=== PATIENT | female | born 1970 | race Caucasian/White ===

== ENCOUNTER 2021-04-26 13:45 | Emergency (ER) | payer OTHER, SELFPAY ==
[2021-04-26 14:00] VITALS: BP 136/72; PULSE 94; RESP 17; TEMP 36.3; O2SAT 99
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
== END 2021-04-26 14:16 | disposition home or self-care (01) ==
PROVIDERS: Emergency Provider Emergency Medicine; PCP Family Medicine
DX: S29.012A Strain of muscle and tendon of back wall of thorax, initial encounter (principal); Y04.8XXA Assault by other bodily force, initial encounter; E78.00 Pure hypercholesterolemia, unspecified; F41.9 Anxiety disorder, unspecified; F32.9 Major depressive disorder, single episode, unspecified
CPT/HCPCS: 99213; G0463

== ENCOUNTER 2021-05-08 10:46 | Emergency (ER) | payer OTHER, SELFPAY ==
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
[2021-05-08 10:57] VITALS: BP 124/75; PULSE 81; RESP 18; TEMP 36.7; O2SAT 97
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
== END 2021-05-08 12:04 | disposition home or self-care (01) ==
PROVIDERS: Emergency Provider Nurse Practitioner; PCP Family Medicine
DX: M25.521 Pain in right elbow (principal); F32.9 Major depressive disorder, single episode, unspecified; K21.9 Gastro-esophageal reflux disease without esophagitis; E78.00 Pure hypercholesterolemia, unspecified; F17.210 Nicotine dependence, cigarettes, uncomplicated
CPT/HCPCS: 73080; 99213; G0463

== ENCOUNTER 2024-12-09 18:05 | Emergency (ER) | payer OTHER, SELFPAY ==
--- NOTE | ~2024-12-09 | XR_ITS ---
XR hand RT min 3V Ordering provider: Maksim Lucas MD History: . PAIN TO RIGHT WRIST AND RIGHT HAND . Comparison: None. FINDINGS: BONES: Comminuted fracture in the distal right radius. JOINT SPACES: Normal. SOFT TISSUES: Normal. IMPRESSION: Near to the fracture in the distal metaphysis of the right radius. Reviewed, dictated and finalized at location A.
--- NOTE | ~2024-12-09 | XR_ITS ---
XR wrist RT min 3V Ordering provider: Raymond Forbes MD History: . pain . Comparison: None. FINDINGS: BONES: Comminuted fracture in the distal right radius metaphysis with no significant displacement. JOINT SPACES: Normal. SOFT TISSUES: Normal. IMPRESSION: Comminuted fracture in the distal right radius. Reviewed, dictated and finalized at location A.
--- NOTE | 2024-12-09 18:08 | PC.NURSE ---
Ice pack applied in Triage
--- OUTSIDE RECORDS SUMMARY | 2024-12-09 18:08 | XMS_ITS | Encounter Summary ---
Author Organization [facility] Address [facility] [place] [address] Care Team Providers Care Supply Chain Logistics Manager Name Role Phone Juanito Vega MD Primary Care Provider [phone] Encounter Details Date Type Department Care Team (Late st Contact Info) Description 04/28/2021 Digital Air Striket Message Enc [facility] Family [facility] - [place] [address] [facility] [address] [facility], [address] [place] [id number] Juanito Vega MD [address] [address] RE: Question Social History Tobacco Use Types Packs/Day Years Used Date Smoking Tobacco: Every Day Smokeless Tobacco: Never Alcohol Use Standard Drinks/Week Comments Yes 0 (1 standard drink = 0.6 oz pur e alcohol) PHQ-2 Answer Date Recorded PHQ-2 Score - If the patient scores above 3, please move on to questions 3-9 0 06/09/2020 Comments No Sex and Gender Information Value Date Recorded Sex Assigned at Female 12/06/2024 9:49 AM CDT Legal Sex Female 11:12 PM CDT Gender Identity Not on file Sexual Orientation Not on file documented as of this encounter Plan of Treatment Not on file documented as of this encounter Visit Diagnoses Not on filedocumented in this encounter Care Teams Supply Chain Logistics Manager Relationship Specialty Start Date End Date Juanito Vega MD [address] [facility] [address] [place], [place] [id number] PCP - General FAMILY PRACTICE 07/07/17 documented as of this encounter
--- OUTSIDE RECORDS SUMMARY | 2024-12-09 18:08 | XMS_ITS | Clinical Summary ---
Author Organization [facility] [place] [address] Care Team Providers Care Blending Tank Tender Name Role Phone Juanito Chavarria MD Primary Care Provider [phone] Allergies No known active allergies Medications metFORMIN ER (GLUCOPHAGE-XR) 500 MG 24 hr tabletIndications: Class 1 obesity due to excess calories with serious comorbidity and body mass index (BMI) of 32.0 to 32.9 in adult Take 2 tablets (1,000 mg total) by mouth daily with breakfast. 180 tablet 3 4 025 Active atorvastatin (LIPITOR) 80 MG tabletIndications: Mixed hyperlipidemia take 1 tablet by mouth everyday at bedtime 90 tablet 3 4 Active cetirizine (ZYRTEC) 10 MG tabletIndications: Allergies take 1 tablet by mouth every day 90 tablet 3 4 Active busPIRone (BUSPAR) 30 MG tabletIndications: Depression with anxiety take 1 tablet by mouth twice a day 180 tablet 3 4 Active omeprazole (PRILOSEC) 40 MG capsuleIndications :Acid reflux disease,GERD (gastroesophageal reflux disease) take 1 capsule by mouth every day 30 capsule 11 4 Active escitalopram (LEXAPRO) 20 MG tabletIndications: Depression with anxiety take 1 tablet by mouth every day 90 tablet 3 4 Active montelukast (SINGULAIR) 10 MG tabletIndications: Allergies TAKE 1 TABLET BY MOUTH EVERYDAY AT BEDTIME 90 tablet 3 4 Active valACYclovir (VALTREX) 500 MG tabletIndications: Herpes Take 2 tablets (1,000 mg total) by mouth for 1 day as needed (outbreak). 14 tablet 3 5 Active Fezolinetant (VEOZAH) 45 MG TabIndications:Men opausal syndrome (hot flashes) Take 45 mg by mouth daily. 90 tablet 3 5 Active Fezolinetant (VEOZAH) 45 MG TabIndications:Men opausal syndrome (hot flashes) Take 45 mg by mouth daily. 90 tablet 3 4 025 Discontin ued(Reord er) Active Problems Problem Noted Date Diagnosed Date Hyperlipidemia 04/18/2015 Acid reflux disease 04/15/2015 Depression with anxiety 04/15/2015 External hemorrhoid 04/15/2015 Herpes simplex 04/15/2015 History of cervical cancer 04/15/2015 Resolved Problems Problem Noted Date Diagnosed Date Resolved Date Fatigue 02/24/2021 07/02/2021 Encounter for preventive health examination 04/14/2015 04/11/2020 Encounters Date Type Department Care Team Description 12/07/2024 Results Follow-Up [facility] [address] [facility], [address] [place] [phone] Juanito Chavarria MD CBC W/DIFF AUTOMATED, COMPREHENSIVE METABOLIC PANEL, ALBUMIN URINE RANDOM W/CREATININE, Additional followed-up results: 3 12/06/2024 10:20 AM CDT Office Visit [facility] [address] [facility], [address] [place] [phone] Juanito Chavarria MD Annual 12/06/2024 Travel 11/09/2024 Scan HEALTH INFO SRVCS Scanned, [facility] 11/09/2024 Scan MG HEALTH INFO SRVCS Scanned, [facility] from Last 3 Months Immunizations Immunization Administration Dates Next Due Fluzone 6 Months+ Quad (0.5 mL Prefilled Syringe) 07/02/2021,06/09/2020 Influenza Adult (Generic) 07/06/2024,05/19/2023 MODERNA COVID-19 (12+), MRNA , LNP-S, PF, 50 MCG/0.5 ML (SPIKEVAX) 07/06/2024 PFIZER COVID-19 (ADAMS CAP), MRNA, LNP-S, PF, 30 MCG/0.3 ML GUILLERMO-SUCROSE, IM 01/28/2022 PFIZER COVID-19 (ORIGINAL FO RMULATION, PURPLE CAP) mRNA, LNP-S, PF, 30 MCG/0.3 ML DOSE 05/25/2021,10/28/2020,09/30/2020 PFIZER COVID-19 BIVALENT (12 +) mRNA, LNP-S, PF, 30 MCG/0.3 ML DOSE 06/07/2022 Pneumococcal (Prevnar 20) 11/09/2024 Shingrix 11/09/2024,07/06/2024 Tdap (Boostrix) 04/15/2015 Tdap (Generic) 04/15/2015 Zoster Unspecified Formulation 07/06/2024 Family History Medical History Relation Comments Mental Health Brother 1 Mental Health Brother 2 Coronary Artery Disease Father Diabetes Father Heart Disease Father Hypertension Father Melanoma Father Alcohol Abuse Mother Quit drinking wh en i was a young girl. Coronary Artery Disease Mother Depression Mother We think she was bipolar Heart Disease Mother Mental Health Mother Mental Health Sister 1 Mental Health Sister 2 Relation Status Comments Brother 1 Brother 2 Alive Father Mother Sister 1 Sister 2 Alive Social History Tobacco Use Types Packs/Day Years Used Date Smoking Tobacco: Former Cigarettes 1 30 Q uit: 1989 Smokeless Tobacco: Never Tobacco Cessation:Counseling Given: No Comments:to discuss with physician Alcohol Use Standard Drinks/Week Comments Yes 3.3 (1 standard drink = 0.6 oz p ure alcohol) Occasionally PHQ-2 Answer Date Recorded Patient Health Questionnaire-2 Score 0 12/06/2024 Comments No Sex and Gender Information Value Date Recorded Sex Assigned at Female 12/06/2024 9:49 AM CDT Legal Sex Female 11:12 PM CDT Gender Identity Not on file Sexual Orientation Not on file Last Filed Vital Signs Vital Sign Reading Time Taken Comments Blood Pressure 126/88 12/06/2024 10:37 AM CDT Pulse 80 12/06/2024 9:54 AM CDT Temperature 36.2 C (97.2 F) 12/06/2024 9:54 AM CDT Respiratory Rate 18 12/06/2024 9:54 AM CDT Oxygen Saturation 98% 12/06/2024 9:54 AM CDT Inhaled Oxygen Concentration - - Weight 80.3 kg (177 lb) 12/06/2024 9:54 AM CDT Height 157.5 cm (5' 2 ) 12/15/2023 8:44 AM CDT Body Mass Index 32.37 12/15/2023 8:44 AM CDT Plan of Treatment Health Maintenance Due Date Last Done Comments Hepatitis B Vaccines (1 of 3 - 19+ 3-dose series) 10/26/1987 Mammogram Screening 12/10/2024 12/10/2022, 5 DTaP, Tdap and Td Vaccines (3 - Td or Tdap) 04/15/2025 04/15/2015, 04/15/2015 Annual Physical 12/06/2025 12/06/2024, 11/29, 12/01/2022, Additional history exists Colorectal Cancer Screening FIT-DNA (3 Years) 07/01/2026 07/01/2023, 07/01/2023, 06/15/2020, Additional history exists Hepatitis C Completed 12/01/2022 COVID-19 Vaccine Completed 07/06/2024, 12/2023, 05/19/2023, Additional history exists Pneumococcal Vaccine: 50+ Years Completed 11/09/2024 Zoster Vaccines Completed 11/09/2024, 12/2023, 07/06/2024 PHQ-2 (Physician Jackson) Completed 12/06/2024 Meningococcal B Vaccine Aged Out No l onger eligible based on patient's age to complete this topic Meningococcal Vaccine Aged Out No jenna dirk eligible based on patient's age to complete this topic RSV Immunizations Under 20 Months Aged Out No longer eligible based on patient's age to complete this topic Procedures Procedure Name Priority Date/Time Associated Diagnosis Comments ALBUMIN URINE RANDOM W/CREATININE Routine 12/06/2024 10:31 AM CDT Healthcare maintenance Mixed hyperlipidemia Screening for diabetes mellitus Screening for diabetes mellitus (DM) Screening cholesterol level Vitamin D deficiency VITAMIN D, 25 OH Routine 12/06/2024 10:2 7 AM CDT Healthcare maintenance Mixed hyperlipidemia Screening for diabetes mellitus Screening for diabetes mellitus (DM) Screening cholesterol level Vitamin D deficiency TSH W/REFLEX Routine 12/06/2024 10:27 AM CDT Healthcare maintenance Mixed hyperlipidemia Screening for diabetes mellitus Screening for diabetes mellitus (DM) Screening cholesterol level Vitamin D deficiency LIPID PANEL Routine 12/06/2024 10:27 AM CDT Healthcare maintenance Mixed hyperlipidemia Screening for diabetes mellitus Screening for diabetes mellitus (DM) Screening cholesterol level Vitamin D deficiency COMPREHENSIVE METABOLIC PANEL Routine 12/06/2024 10:27 AM CDT Healthcare maintenance Mixed hyperlipidemia Screening for diabetes mellitus Screening for diabetes mellitus (DM) Screening cholesterol level Vitamin D deficiency CBC W/DIFF AUTOMATED Routine 12/06/2024 10:27 AM CDT Healthcare maintenance Mixed hyperlipidemia Screening for diabetes mellitus Screening for diabetes mellitus (DM) Screening cholesterol level Vitamin D deficiency COLOGUARD (EXACT SCIENCE) Routine 07/01/2023 6:40 AM HOUSEKEEPING ATTENDANT Screen for colon cancer MG SCREENING W RADHA SURJIT DIGI Routine 12/10/2022 10:34 AM CDT Screening breast examination HEPATITIS C ANTIBODY Routine 12/01/2022 10:20 AM CDT Herpes Nicotine dependence, cigarettes, uncomplicated Mixed hyperlipidemia Healthcare maintenance Screening cholesterol level Screening for diabetes mellitus Encounter for hepatitis C screening test for low risk patient Prediabetes Other fatigue Class 1 obesity due to excess calories without serious comorbidity with body mass index (BMI) of 31.0 to 31.9 in adult Vitamin D deficiency Screening breast examination from Last 3 Months or Most Recently Relevant to Health Maintenance Results * ALBUMIN URINE RANDOM W/CREATININE (12/06/2024 10:31 AM CDT) Pathologist [facility] CREATININE RANDOM (U) 259 20 - 275 mg/dL [facility] MICROALBUMIN (U) 1.4 See Note: mg/dL [facility] Comment: Reference Range: Reference Range Not established MICROALB/CREAT 5 <30 mg/g creat [facility] Comment: The ADA defines abnormalities in albumin excretion as follows: Albuminuria Category Result (mg/g creatinine) Normal to Mildly increased <30 Moderately increased 30-299 Severely increased > OR = 300 The ADA recommends that at least two of three specimens collected within a 3-6 month period be abnormal before considering a patient to be within a diagnostic category. URINE SPECIMEN / Unknown 12/06/2024 10:31 AM CDT 12/06/2024 10:32 AM CDT Narrative [facility] - 12/07/2024 6:22 AM CDT SPLIT 12/06/2024 FROM [id number] Resulting Agency Comment Performing Organization Information: Site ID: [id number] Name: [facility] Address: [address] [place] [phone] Director: Paz Prakash MD Juanito Chavarria MD URINE ORDERABLES Final Result Performing Organization Address [facility] de Phone Number [facility] [phone] [place] [address] * TSH W/REFLEX (12/06/2024 10:27 AM CDT) TSH 0.94 0.40 - 4.50 mIU/L [facility] 12/06/2024 10:2 7 AM CDT 12/06/2024 10:28 AM CDT Narrative [facility] - 12/07/2024 5:24 AM CDT FASTING:YES PATIENT UNABLE TO VOID; ADVISED TO RETURN FOR COLLECTION. FASTING: YES Resulting Agency Comment Performing Organization Information: Site ID: [id number] Name: [facility] Address: [address] [place] [phone] Director: Paz Prakash MD Juanito Chavarria MD LABORATORY Final Result Performing Organization Address City/[facility] Co de Phone Number Sprinkle [facility] [phone] [place] [address] * COMPREHENSIVE METABOLIC PANEL (12/06/2024 10:27 AM CDT) GLUCOSE 92 65 - 99 mg/dL [facility] Comment: Fasting reference interval BUN 13 7 - 25 mg/dL [facility] CREATININE S/P/B 0.82 0.50 - 1.03 mg/dL [facility] GFR ESTIMATE 84 > OR = 60 mL/min/1. 73m2 [facility] BUN CREATININE RATIO SEE NOTE: 6 - 22 (calc) [facility] Comment: Not Reported: BUN and Creatinine are within reference range. SODIUM S/P/B 138 135 - 146 mmol/L [facility] POTASSIUM S/P/B 4.4 3.5 - 5.3 mmol/L [facility] CHLORIDE S/P/B 103 98 - 110 mmol/L [facility] CO2 27 20 - 32 mmol/L [facility] CALCIUM S/P/B 9.4 8.6 - 10.4 mg/dL [facility] TOTAL PROTEIN S/P/B 7.1 6.1 - 8.1 g/dL [facility] ALBUMIN S/P/B 4.6 3.6 - 5.1 g/dL [facility] GLOBULIN 2.5 1.9 - 3.7 g/dL (calc) [facility] ALBUMIN/GLOBULI N RATIO 1.8 1.0 - 2.5 (calc) [facility] BILIRUBIN TOTAL S/P/B 0.5 0.2 - 1.2 mg/dL [facility] ALKALINE PHOSPHATASE S/P/B 87 37 - 153 U/L [facility] AST 16 10 - 35 U/L [facility] ALT 21 6 - 29 U/L [facility] 12/06/2024 10:2 7 AM CDT 12/06/2024 10:28 AM CDT Narrative [facility] - 12/07/2024 5:24 AM CDT FASTING:YES PATIENT UNABLE TO VOID; ADVISED TO RETURN FOR COLLECTION. FASTING: YES Resulting Agency Comment Performing Organization Information: Site ID: [id number] Name: [facility] Address: [address] [address] Director: Paz Prakash MD us Juanito Chavarria MD LABORATORY Final Result [facility] [id number] [address], [place] * (ABNORMAL) LIPID PANEL (12/06/2024 10:27 AM CDT) Pathologist [facility] CHOLESTEROL 215(H) <200 mg/dL [facility] HDL 52 > OR = 50 mg/dL [facility] TRIGLYCERIDES 119 <150 mg/dL [facility] LDL (CALCULATED) 139(H) mg/dL (calc) [facility] Comment: Reference range: <100 Desirable range <100 mg/dL for primary prevention; <70 mg/dL for patients with CHD or diabetic patients with > or = 2 CHD risk factors. LDL-C is now calculated using the Jori calculation, which is a validated novel method providing better accuracy than the Friedewald equation in the estimation of LDL-C. Orestes SS et al. MARY. 2013;310(19): 3696-4254 (http://education.[employer]/faq/FQT287) CHOL/HDL RATIO 4.1 <5.0 (calc) [facility] NON HDL CHOLESTEROL 163(H) <130 mg/dL (calc) [facility] Comment: For patients with diabetes plus 1 major ASCVD risk factor, treating to a non-HDL-C goal of <100 mg/dL (LDL-C of <70 mg/dL) is considered a therapeutic option. 12/06/2024 10:2 7 AM CDT 12/06/2024 10:28 AM CDT Narrative [facility] JAMARI JAMA - 12/07/2024 5:24 AM CDT FASTING:YES PATIENT UNABLE TO VOID; ADVISED TO RETURN FOR COLLECTION. FASTING: YES Resulting Agency Comment Performing Organization Information: Site ID: [id number] Name: [facility] Address: [address] [place] [address] Director: Paz Prakash MD Juanito Chavarria MD LABORATORY Final Result JESUS JAMA [facility] [address] [place] [address], * (ABNORMAL) CBC W/DIFF AUTOMATED (12/06/2024 10:27 AM CDT) WBC 6.4 3.8 - 10.8 Thousand/ uL [facility] RBC 4.67 3.80 - 5.10 Million/u L [facility] HGB 14.7 11.7 - 15.5 g/dL [facility] HCT 45.2(H) 35.0 - 45.0 % [facility] MCV 96.8 80.0 - 100.0 fL [facility] MCH 31.5 27.0 - 33.0 pg [facility] MCHC 32.5 32.0 - 36.0 g/dL [facility] Comment: For adults, a slight decrease in the calculated MCHC value (in the range of 30 to 32 g/dL) is most likely not clinically significant; however, it should be interpreted with caution in correlation with other red cell parameters and the patient's clinical condition. RDW 12.6 11.0 - 15.0 % [facility] PLT 324 140 - 400 Thousand/ uL [facility] MPV 9.6 7.5 - 12.5 fL [facility] ABS. NEUTROPHILS 2,874 1,500 - 7,800 cells/uL [facility] ABS. LYMPHOCYTES 2,912 850 - 3,900 cells/uL [facility] ABS. MONOCYTES 480 200 - 950 cells/uL [facility] ABS. EOSINOPHILS 51 15 - 500 cells/uL [facility] ABS. BASOPHILS 83 0 - 200 cells/uL [facility] SEG NEUTROPHILS 44.9 % [facility] LYMPHOCYTES 45.5 % [facility] MONOCYTES 7.5 % [facility] EOSINOPHILS 0.8 % [facility] BASOPHILS 1.3 % [facility] 12/06/2024 10:2 7 AM CDT 12/06/2024 10:28 AM CDT Narrative [facility] - [facility] - 12/07/2024 5:24 AM CDT FASTING:YES PATIENT UNABLE TO VOID; ADVISED TO RETURN FOR COLLECTION. FASTING: YES Resulting Agency Comment Performing Organization Information: Site ID: [place] Name: [facility] Address: [address] [address] Director: Paz Prakash MD Juanito Chavarria MD LABORATORY Final Result [facility] [address] [place] [address], [place] * VITAMIN D, 25 OH (12/06/2024 10:27 AM CDT) VITAMIN D 25 HYDROXY TOTAL S/P/B 36 30 - 100 ng/mL [facility] Comment: Vitamin D Status 25-OH Vitamin D: Deficiency: <20 ng/mL Insufficiency: 20 - 29 ng/mL Optimal: > or = 30 ng/mL For 25-OH Vitamin D testing on patients on D2-supplementation and patients for whom quantitation of D2 and D3 fractions is required, the QuestAssureD(TM) 25-OH VIT D, (D2,D3), LC/MS/MS is recommended: order code 21523 (patients >2yrs). See Note 1 Note 1 For additional information, please refer to http://education.[employer]/faq/HRQ581 (This link is being provided for informational/ educational purposes only.) 12/06/2024 10:2 7 AM CDT 12/06/2024 10:28 AM CDT Narrative [facility] - 12/07/2024 5:24 AM CDT FASTING:YES PATIENT UNABLE TO VOID; ADVISED TO RETURN FOR COLLECTION. FASTING: YES Resulting Agency Comment Performing Organization Information: Site ID: [id number] Name: [facility] Address: [address] [place] [phone] Director: Paz Prakash MD Juanito Chavarria MD LABORATORY Final Result Performing Organization Address [facility]/ZIP Co de Phone Number [facility] - [facility] [phone] [place] [id number], [place] * COLOGUARD (EXACT SCIENCE) (07/01/2023 6:40 AM HOUSEKEEPING ATTENDANT) COLOGUARD RESULT Negative Negative EXA better. (CLIA #:[id number]) Comment: NEGATIVE TEST RESULT. A negative Cologuard result indicates a low likelihood that a colorectal cancer (CRC) or advanced adenoma (adenomatous polyps with more advanced pre-malignant features) is present. The chance that a person with a negative Cologuard test has a colorectal cancer is less than 1 in 1500 (negative predictive value >99.9%) or has an advanced adenoma is less than 5.3% (negative predictive value 94.7%). These data are based on a prospective cross-sectional study of 10,000 individuals at average risk for colorectal cancer who were screened with both Cologuard and colonoscopy. (Elizabeth Ricks et al, N Engl J Med 2014;370(14):8701-5757) The normal value (reference range) for this assay is negative. COLOGUARD RE-SCREENING RECOMMENDATION: Periodic colorectal cancer screening is an important part of preventive healthcare for asymptomatic individuals at average risk for colorectal cancer. Following a negative Cologuard result, the [place] Cancer Society and U.S. Multi-Society Task Force screening guidelines recommend a Cologuard re-screening interval of 3 years. References: [place] Cancer Society Guideline for Colorectal Cancer Screening: https://www.cancer.org/cancer/kkqzo-nekprk-cnqtzo/okuuveyod-vprusnmks-ugzysnx/ac s-rec ommendations.html.; Chandler DK, Chris CR, Martha BairdK, Colorectal Cancer Screening: Recommendations for Physicians and Patients from the U.S. Multi-Society Task Force on Colorectal Cancer Screening , Am J Gastroenterology 2017; 112:3787-2638. TEST DESCRIPTION: Composite algorithmic analysis of stool DNA-biomarkers with hemoglobin immunoassay. Quantitative values of individual biomarkers are not reportable and are not associated with individual biomarker result reference ranges. Cologuard is intended for colorectal cancer screening of adults of either sex, 45 years or older, who are at average-risk for colorectal cancer (CRC). Cologuard has been approved for use by the U.S. FDA. The performance of Cologuard was established in a cross sectional study of average-risk adults aged 50-84. Cologuard performance in patients ages 45 to 49 years was estimated by sub-group analysis of near-age groups. Colonoscopies performed for a positive result may find as the most clinically significant lesion: colorectal cancer [4.0%], advanced adenoma (including sessile serrated polyps greater than or equal to 1cm diameter) [20%] or non- advanced adenoma [31%]; or no colorectal neoplasia [45%]. These estimates are derived from a prospective cross-sectional screening study of 10,000 individuals at average risk for colorectal cancer who were screened with both Cologuard and colonoscopy. (Elizabeth River al, N Engl J Med 2014;370(14):8399-6202.) Cologuard may produce a false negative or false positive result (no colorectal cancer or precancerous polyp present at colonoscopy follow up). A negative Cologuard test result does not guarantee the absence of CRC or advanced adenoma (pre-cancer). The current Cologuard screening interval is every 3 years. ([place] Cancer Society and U.S. Multi-Society Task Force). Cologuard performance data in a 10,000 patient pivotal study using colonoscopy as the reference method can be accessed at the following location: www.[employer]/results. Additional description of the Cologuard test process, warnings and precautions can be found at www.[employer]Care Onsite[employer]NanoDet[employer] Technologyrd.[employer]. STOOL STOOL SPECIMEN / Unknown 07/01/2023 6:40 AM HOUSEKEEPING ATTENDANT 07/02/2023 6:12 PM HOUSEKEEPING ATTENDANT us Juanito Chavarria MD BODY FLUIDS AND STOOLS ORDERA BLES Final Result [facility] ([facility]) [address] [place] [address], [place] (CLIA #:[id number]) [address] [place] [address] * MG SCREENING W RADHA SURJIT DIGI (12/10/2022 10:34 AM CDT) Anatomical Region Laterality Modality Breast Bilateral Mammography 12/10/2022 10:4 4 AM CDT Narrative 12/10/2022 10:48 AM CDT Examination: Screening bilateral mammogram Exam Date: 12/10/2022 10:19 AM Clinical history: Routine screening. Comparison: 05/03/2015 Technique: Digital screening mammography of both breasts was performed. Breast tomosynthesis acquisitions were obtained and reviewed. This study was read with the assistance of a computer-aided detection system. Tissue density: The breast tissue is heterogeneously dense, which may obscure small masses. Findings: The breast parenchymal pattern is stable. A few punctate benign-appearing calcifications are noted. No suspicious masses, malignant appearing calcifications, skin thickening or other abnormalities are present. No significant change from the prior exam. IMPRESSION: No suspicious mammographic findings. Recommendation: 1. Routine Screening, Bilateral Assessment: ACR BI-RADS 2 - BENIGN FINDING(S) Ordered By: JUANITO CHAVARRIA Interpreted By: Ammon García MD, 12/10/2022 10:44 AM Juanito Chavarria MD MAMMO Final Result * HEPATITIS C ANTIBODY (12/01/2022 10:20 AM CDT) HEPATITIS C AB NON-REACTI VE NON-REACT ARIE 12/01/2022 9:39 PM CDT [facility] Comment: ANTIBODIES TO HCV NOT DETECTED. DOES NOT EXCLUDE THE POSSIBILITY OF EXPOSURE TO HCV. 12/01/2022 10:2 0 AM CDT Juanito Chavarria MD LABORATORY Final Result [facility] [address] [place] [address], [id number] from Last 3 Months or Most Recently Relevant to Health Maintenance Insurance Care Teams Blending Tank Tender Relationship Specialty Start Date End Date Juanito Chavarria MD [address] [facility] [address] [place] [address] PCP - General FAMILY PRACTICE 07/07/17
--- OUTSIDE RECORDS SUMMARY | 2024-12-09 18:08 | XMS_ITS | Encounter Summary ---
Author Organization [facility] Address [address] [place] [address] Care Team Providers Care Literacy Coach Name Role Phone Juanito Vega MD Primary Care Provider Encounter Details Date Type Department Care Team (Late st Contact Info) Description 10/26/2021 MyChart Message Enc [facility] Family [facility] - [place] [address] [facility], [address] [place] [phone] Juanito Vega MD [address] [facility] [address] [place] [address] Neck pain Social History Tobacco Use Types Packs/Day Years Used Date Smoking Tobacco: Every Day Smokeless Tobacco: Never Alcohol Use Standard Drinks/Week Comments Yes 0 (1 standard drink = 0.6 oz pur e alcohol) PHQ-2 Answer Date Recorded PHQ-2 Score - If the patient scores above 3, please move on to questions 3-9 0 10/29/2021 Comments No Sex and Gender Information Value Date Recorded Sex Assigned at Female 12/06/2024 9:49 AM CDT Legal Sex Female 11:12 PM CDT Gender Identity Not on file Sexual Orientation Not on file COVID-19 Exposure Response Date Recorded In the last 10 days, have yo u been in contact with someone who was confirmed or suspected to have Coronavirus/COVID-19? No / Unsure 10/29/2021 10:25 AM CDT documented as of this encounter Progress Notes * Juanito Vega MD - 10/26/2021 7:55 AM CDT appointment documented in this encounter Plan of Treatment Not on file documented as of this encounter Visit Diagnoses Not on filedocumented in this encounter Additional Health Concerns Assessment Noted Time PHQ-9 Depression Total Score: 0 07/02/20 21 2:34 PM AQUACULTURIST documented as of this encounter Care Teams Literacy Coach Relationship Specialty Start Date End Date Juanito Vega MD [address] [address] PCP - General FAMILY PRACTICE 07/07/17 documented as of this encounter
--- OUTSIDE RECORDS SUMMARY | 2024-12-09 18:08 | XMS_ITS | Encounter Summary ---
Author Organization [facility] Address [address] [place] [address] Care Team Providers Care Flame Burner Name Role Phone Juanito Vega MD Primary Care Provider [phone] Encounter Details Date Type Department Care Team (Latest Contact Info) Description 03/16/2022 MyCSkatazt Message Enc [facility] Family Medicine - [place] [address] [facility], [address] [place] [address] Juanito Vega MD [address] [facility] [address] [place] [address] Special Assemblies Supervisor referral request Social History Tobacco Use Types Packs/Day Years Used Date Smoking Tobacco: Every Day Smokeless Tobacco: Never Comments:to discuss with alinasal kellie Alcohol Use Standard Drinks/Week Comments Yes 0 [...] Noted Time PHQ-9 Depression Total Score: 0 10/30/19 22 10:50 AM CDT documented as of this encounter Care Teams Flame Burner Relationship Specialty Start Date End Date Juanito Vega MD [address] [address] [place] [address] PCP - General FAMILY PRACTICE 07/07/17 documented as of this encounter
--- OUTSIDE RECORDS SUMMARY | 2024-12-09 18:08 | XMS_ITS | Encounter Summary ---
Author Organization [facility] Address [facility] [place] [address] Care Team Providers Care Triple Valve Mechanic Name Role Phone Juanito Vega MD Primary Care Provider [phone] Encounter Details Date Type Department Care Team (Late st Contact Info) Description 08/19/2020 Frediot Message Enc [facility] Family Medicine - [place] [address] [facility], [address] [place] [phone] Juanito Veag MD [address] [address] RE: Question Social History Tobacco [...] on filedocumented in this encounter Care Teams Triple Valve Mechanic Relationship Specialty Start Date End Date Juanito Vega MD [address] [facility] [address] [place], [place] [phone] PCP - General FAMILY PRACTICE 07/07/17 documented as of this encounter
--- OUTSIDE RECORDS SUMMARY | 2024-12-09 18:08 | XMS_ITS | Encounter Summary ---
Author Organization [facility] Address [address] [place] [address] Care Team Providers Care Therapeutic Recreation Assistant Name Role Phone Juanito Vega MD Primary Care Provider Encounter Details Date Type Department Care Team (Late st Contact Info) Description 12/11/2023 MyCFlying Pig Digitalt Message Enc [facility] Family Medicine - [place] [address] [facility], [address] [place] [phone] Juanito Vega MD [address] [facility] [address] [place], [place] [phone] Hormones Social History Tobacco Use Types Packs/Day Years Used Date Smoking Tobacco: Every Day Cigarettes 1 30 Smokeless Tobacco: Never Comments:to discuss with patricia hopkins Alcohol Use Standard Drinks/Week Comments Yes 3.3 (1 standard drink = 0.6 oz p ure alcohol) Occasionally PHQ-2 Answer Date Recorded Patient Health Questionnaire-2 Score 0 12/15/2023 Comments No Sex and Gender Information Value [...] documented as of this encounter Care Teams Therapeutic Recreation Assistant Relationship Specialty Start Date End Date Juanito Vega MD [address] [address] [place] [address] PCP - General FAMILY PRACTICE 07/07/17 documented as of this encounter
--- OUTSIDE RECORDS SUMMARY | 2024-12-09 18:08 | XMS_ITS | Encounter Summary ---
Author Organization [facility] Address [address] [place] [address] Care Team Providers Care Astronomy Department Chair Name Role Phone Juanito Vega MD Primary Care Provider [phone] Encounter Details Date Type Department Care Team (Late st Contact Info) Description 08/18/2024 MyCKabbaget Message Enc [facility] Family Medicine - [place] [address] [facility], [address] [place] [address] Juanito Vega MD [address] [facility] [address] [place], [place] [phone] Update email Social History Tobacco Use Types Packs/Day Years [...] documented as of this encounter Care Teams Astronomy Department Chair Relationship Specialty Start Date End Date Juanito Vega MD [address] [address] [place] [address] PCP - General FAMILY PRACTICE 07/07/17 documented as of this encounter
[2024-12-09 18:17] VITALS: BP 149/86; PULSE 90; RESP 18; TEMP 36.7; O2SAT 98
--- NOTE | 2024-12-09 20:01 | ED.UPPEXIN ---
HPI - Extremity Injury (Upper) General Chief Complaint: Extremity Injury, Upper Stated Complaint: injury right wrist -fell Time Seen by Provider: 12/09/24 19:51 Source: patient Mode of arrival: ambulatory Limitations: no limitations History of Present Illness HPI narrative: This is a 54 year old female that presents to the ER today after a slip and fall. Reports she caught herself with her right hand. Reports swelling and pain in the area. Reports decreased range of motion. She did not hit her head or lose consciousness. Denies numbness. Related Data Home Medications ?Medication ?Instructions ?Recorded ?Confirmed ?Last Taken ?Type atorvastatin 80 mg tablet 80 mg PO DAILY 04/26/21 05/08/21 Unknown History buspirone 10 mg tablet 10 mg PO DAILY 04/26/21 05/08/21 Unknown History escitalopram oxalate 20 mg tablet 20 mg PO DAILY 04/26/21 05/08/21 Unknown History omeprazole 40 mg capsule,delayed 40 mg PO DAILY 04/26/21 05/08/21 Unknown History release Allergies Allergy/AdvReac Type Severity Reaction Status Date / Time No Known Allergies Allergy Verified 12/09/24 20:30 Review of Systems Review of Systems: CONSTITUTIONAL: Denies fever MUSCULOSKELETAL: Reports joint pain, and myalgia. NEUROLOGIC: Denies numbness All systems reviewed & are unremarkable except as noted in HPI and below PMFSH Past Medical History Medical History Depression GERD (gastroesophageal reflux disease) High cholesterol Social History Social History (Updated 05/08/21 @ 11:16 by Vilma Tirado, DALILA) Smoking packs per day: 0.8 Smoking cigarettes per day: 16.0 Smoking status: Current every day smoker Tobacco type: cigarettes Alcohol intake: current Alcohol use details: Usually drinks 1 or 2 times a week but has been drinking a little more the last few weeks Exam Narrative: GENERAL: Well-appearing, well-nourished, and in no acute distress. HEAD: Normocephalic, atraumatic. EYES: EOMI. EXTREMITIES: Decreased range of motion in the right wrist. Edema about the right wrist. Normal radial pulse. Normal sensation SKIN: Warm, dry, no rash. NEURO: No focal deficits. Alert and oriented x3. PSYCH: Normal mood and affect Course Course Emergency Course: Patient updated on her workup and agrees with plan of care Vital Signs Vital signs: Vital Signs Temperature 98.0 F 12/09/24 18:17 Pulse Rate 90 12/09/24 18:17 Respiratory Rate 18 12/09/24 18:17 Blood Pressure 149/86 H 12/09/24 18:17 Pulse Oximetry 98 12/09/24 18:17 Oxygen Delivery Room Air 12/09/24 18:17 Temperature 98.0 F 12/09/24 18:17 Pulse Rate 84 12/09/24 20:31 Respiratory Rate 17 12/09/24 20:31 Blood Pressure 145/83 H 12/09/24 20:31 Pulse Oximetry 98 12/09/24 20:31 Oxygen Delivery Room Air 12/09/24 18:17 Procedures Orthopedic Splinting/Casting Injury #1: Splinting/Casting Date: 12/09/24 Splinting/Casting Time: 20:43 Side: right Upper Extremity Injury Location: wrist Splint: customized in ED OCL: volar Pre-Procedure Neuro Vascular Exam: normal Post-Procedure Neuro Vascular Exam: normal MDM - Extremity Injury (Upper) MDM Narrative Medical decision making narrative: Patient presents the emergency department for right wrist injury sustained just prior to arrival. She is neurovascularly intact. Right wrist x-ray shows a comminuted fracture of the distal radius. Patient placed in a splint. Will be given follow-up with Orthopedics. She was given warnings to return to the ER Differential Diagnosis Differential diagnosis: Likely sprain and strain of wrist and fracture of wrist Imaging Data Radiologist's impression: ITS Impressions Wrist X-Ray 12/09/24 18:50 IMPRESSION: Comminuted fracture in the distal right radius. Hand X-Ray 12/09/24 18:54 IMPRESSION: Near to the fracture in the distal metaphysis of the right radius. Critical Care Time Critical Care Time Critical Care Time: No Discharge Plan Discharge Clinical Impression: Distal radius fracture, right Qualifiers: Encounter type: initial encounter Fracture type: closed Fracture morphology: unspecified fracture morphology Qualified Code(s): S52.501A - Unspecified fracture of the lower end of right radius, initial encounter for closed fracture Patient Disposition: Home Condition: Stable Instructions: Wrist Fracture in Adults (ED) Additional Instructions: Return to the ER if you experience fever, redness and swelling of your extremity, numbness or any other symptoms that are concerning to you Wear splint. No weight on the affected extremity. Ice and elevate extremity. Pain medication as needed and directed. Follow up with orthopedics for further care. Patient Language: [place]ese Prescriptions: New hydrocodone-acetaminophen 5-325 mg tablet 1 tablet PO Q6H PRN (Reason: pain) Qty: 20 0RF No Action atorvastatin 80 mg tablet 80 mg PO DAILY omeprazole 40 mg capsule,delayed release(DR/EC) 40 mg PO DAILY buspirone 10 mg tablet 10 mg PO DAILY escitalopram oxalate 20 mg tablet 20 mg PO DAILY acetaminophen-codeine 300-30 mg tablet 1 - 1.5 tablet PO HS PRN (Reason: pain) Qty: 20 0RF lidocaine 5 % ointment 1 applic topical BID PRN (Reason: pain) Qty: 30 1RF Follow-up/Referrals: Silvia,Juanito Irene MD [Primary Care Provider] - Kamron Blake MD [Physician] -
--- OUTSIDE RECORDS SUMMARY | 2024-12-09 20:21 | XMS_ITS | Encounter Summary ---
Author Organization [facility] Address [facility] [place] [address] Care Team Providers Care Laminating Machine Operator Helper Name Role Phone Juanito Vega MD Primary Care Provider [phone] Encounter Details Date Type Department Care Team (Late st Contact Info) Description 08/19/2020 icanbuyt Message Enc [facility] Family Medicine - [place] [address] [facility], [address] [place] [phone] Juanito Vega MD [address] [address] RE: Question Social History Tobacco [...] on filedocumented in this encounter Care Teams Laminating Machine Operator Helper Relationship Specialty Start Date End Date Juanito Vega MD [address] [facility] [address] [place], [place] [phone] PCP - General FAMILY PRACTICE 07/07/17 documented as of this encounter
--- OUTSIDE RECORDS SUMMARY | 2024-12-09 20:21 | XMS_ITS | Encounter Summary ---
Author Organization [facility] Address [address] [place] [address] Care Team Providers Care Road Machine Runner Name Role Phone Juanito Vega MD Primary Care Provider [phone] Encounter Details Date Type Department Care Team (Late st Contact Info) Description 10/26/2021 MyChart Message Enc [facility] Family Medicine - [place] [address] [facility], [address] [place] [phone] Juanito Vega MD [address] [facility] [address] [place] [address] Neck pain Social History Tobacco [...] Total Score: 0 07/02/20 21 2:34 PM MOTION PICTURE SET GRIP documented as of this encounter Care Teams Road Machine Runner Relationship Specialty Start Date End Date Juanito Vega MD [address] [address] PCP - General FAMILY PRACTICE 07/07/17 documented as of this encounter
--- OUTSIDE RECORDS SUMMARY | 2024-12-09 20:21 | XMS_ITS | Encounter Summary ---
Author Organization [facility] Address [address] [place] [address] Care Team Providers Care Coloring Machine Operator Name Role Phone Juanito Vega MD Primary Care Provider [phone] Encounter Details Date Type Department Care Team (Latest Contact Info) Description 03/16/2022 MyCUnightt Message Enc [facility] Family Medicine - [place] [address] [facility], [address] [place] [address] Juanito Vega MD [address] [facility] [address] [place] [address] Principal Architect referral request Social History Tobacco Use Types [...] documented as of this encounter Care Teams Coloring Machine Operator Relationship Specialty Start Date End Date Juanito Vega MD [address] [address] [place] [address] PCP - General FAMILY PRACTICE 07/07/17 documented as of this encounter
--- OUTSIDE RECORDS SUMMARY | 2024-12-09 20:21 | XMS_ITS | Clinical Summary ---
Author Organization [facility] Address [facility] [place] [address] Care Team Providers Care Photographic Aide Name Role Phone Juanito Chavarria MD Primary Care Provider [phone] Allergies No known active allergies Medications metFORMIN [...] Department Care Team Description 12/07/2024 Results Follow-Up [facility] [address] [facility], [address] [place] [phone] Juanito Chavarria MD CBC W/DIFF AUTOMATED, COMPREHENSIVE METABOLIC PANEL, ALBUMIN URINE RANDOM W/CREATININE, Additional followed-up results: 3 12/06/2024 10:20 AM CDT Office Visit [facility] [address] [facility], [address] [place] [phone] Juanito Chavarria MD Annual 12/06/2024 Travel 11/09/2024 [...] Vaccines Completed 11/09/2024, 12/2023, 07/06/2024 PHQ-2 (Physician [employer]) Completed 12/06/2024 Meningococcal B Vaccine Aged Out [...] COLOGUARD (EXACT SCIENCE) Routine 07/01/2023 6:40 AM LOOP SEWER Screen for colon cancer MG SCREENING W [...] RANDOM W/CREATININE (12/06/2024 10:31 AM CDT) Pathologist [facility] CREATININE RANDOM (U) 259 20 - 275 mg/dL [facility] MICROALBUMIN (U) 1.4 See Note: mg/dL [facility] [...] AM CDT 12/06/2024 10:32 AM CDT Narrative [facility] [place] [facility] - 12/07/2024 6:22 AM CDT SPLIT 12/06/2024 FROM [id number] Resulting Agency Comment Performing Organization Information: Site ID: [id number] Name: [facility] Address: [address] [place] [phone] Director: Paz Prakash MD Juanito Chavarria MD URINE ORDERABLES Final Result Performing Organization Address [facility] de Phone Number [facility] [id number] [place] [address] * TSH W/REFLEX (12/06/2024 10:27 AM CDT) TSH 0.94 0.40 - 4.50 mIU/L [facility] 12/06/2024 10:2 7 AM CDT 12/06/2024 10:28 AM CDT Narrative [facility] - 12/07/2024 5:24 AM CDT FASTING:YES PATIENT UNABLE TO VOID; ADVISED TO RETURN FOR COLLECTION. FASTING: YES Resulting Agency Comment Performing Organization Information: Site ID: A[place]EM Name: [facility] Address: [address] [place] [phone] Director: Paz Prakash MD Juanito Chavarria MD LABORATORY Final Result Performing Organization Address City/[facility] Co de Phone Number [facility] [id number] [place] [address] * COMPREHENSIVE METABOLIC PANEL (12/06/2024 10:27 AM CDT) GLUCOSE 92 65 - 99 mg/dL [facility] Comment: Fasting reference interval BUN 13 7 - 25 mg/dL [facility] CREATININE S/P/B 0.82 0.50 - 1.03 mg/dL [facility] GFR ESTIMATE 84 > OR = 60 mL/min/1. 73m2 [facility] BUN CREATININE RATIO SEE NOTE: 6 - 22 (calc) [facility] Comment: Not Reported: BUN and Creatinine are within reference range. SODIUM S/P/B 138 135 - 146 mmol/L [facility] POTASSIUM S/P/B 4.4 3.5 - 5.3 mmol/L [facility] CHLORIDE S/P/B 103 98 - 110 mmol/L [facility] CO2 27 20 - 32 mmol/L [facility] CALCIUM S/P/B 9.4 8.6 - 10.4 mg/dL [facility] TOTAL PROTEIN S/P/B 7.1 6.1 - 8.1 g/dL [facility] ALBUMIN S/P/B 4.6 3.6 - 5.1 g/dL [facility] GLOBULIN 2.5 1.9 - 3.7 g/dL (calc) [facility] ALBUMIN/GLOBULI N RATIO 1.8 1.0 - 2.5 (calc) [facility] BILIRUBIN TOTAL S/P/B 0.5 0.2 - 1.2 mg/dL [facility] ALKALINE PHOSPHATASE S/P/B 87 37 - 153 U/L [facility] AST 16 10 - 35 U/L [facility] ALT 21 6 - 29 U/L [facility] 12/06/2024 10:2 7 AM CDT 12/06/2024 10:28 AM CDT Narrative [facility] - 12/07/2024 5:24 AM CDT FASTING:YES PATIENT UNABLE TO VOID; ADVISED TO RETURN FOR COLLECTION. FASTING: YES Resulting Agency Comment Performing Organization Information: Site ID: [place] Name: [facility] Address: [address] [address] Director: Paz Prakash MD us Juanito Chavarria MD LABORATORY Final Result [facility] [address] [address], [place] * (ABNORMAL) LIPID PANEL (12/06/2024 10:27 AM CDT) Pathologist [facility] CHOLESTEROL 215(H) <200 mg/dL [facility] HDL 52 > OR = 50 mg/dL [facility] TRIGLYCERIDES 119 <150 mg/dL [facility] LDL (CALCULATED) 139(H) mg/dL (calc) [facility] Comment: Reference range: <100 Desirable range <100 mg/dL for primary prevention; <70 mg/dL for patients with CHD or diabetic patients with > or = 2 CHD risk factors. LDL-C is now calculated using the Jori calculation, which is a validated novel method providing better accuracy than the Friedewald equation in the estimation of LDL-C. Orestes SS et al. MARY. 2013;310(19): 8571-7189 (http://education.GoodRx/faq/SSW458) CHOL/HDL RATIO 4.1 <5.0 (calc) [facility] NON HDL CHOLESTEROL 163(H) <130 mg/dL (calc) [facility] Comment: For patients with diabetes plus 1 major ASCVD risk factor, treating to a non-HDL-C goal of <100 mg/dL (LDL-C of <70 mg/dL) is considered a therapeutic option. 12/06/2024 10:2 7 AM CDT 12/06/2024 10:28 AM CDT Narrative [facility] JAM[facility]I JAMA - 12/07/2024 5:24 AM CDT FASTING:YES PATIENT UNABLE TO VOID; ADVISED TO RETURN FOR COLLECTION. FASTING: YES Resulting Agency Comment Performing Organization Information: Site ID: [place] Name: [facility] Address: [address] [place] [address] Director: Paz Prakash MD Juanito Chavarria MD LABORATORY Final Result JESUS J[facility] [address] [place] [address], * (ABNORMAL) CBC W/DIFF AUTOMATED (12/06/2024 10:27 AM CDT) WBC 6.4 3.8 - 10.8 Thousand/ uL [facility] RBC 4.67 3.80 - 5.10 Million/u L [facility] HGB 14.7 11.7 - 15.5 g/dL [facility] HCT 45.2(H) 35.0 - 45.0 % [facility] MCV 96.8 80.0 - 100.0 fL [facility] MCH 31.5 27.0 - 33.0 pg [facility] MCHC 32.5 32.0 - 36.0 g/dL [facility] Comment: For adults, a slight decrease in the calculated MCHC value (in the range of 30 to 32 g/dL) is most likely not clinically significant; however, it should be interpreted with caution in correlation with other red cell parameters and the patient's clinical condition. RDW 12.6 11.0 - 15.0 % [facility] PLT 324 140 - 400 Thousand/ uL [facility] MPV 9.6 7.5 - 12.5 fL [facility] ABS. NEUTROPHILS 2,874 1,500 - 7,800 cells/uL [facility] ABS. LYMPHOCYTES 2,912 850 - 3,900 cells/uL [facility] ABS. MONOCYTES 480 200 - 950 cells/uL [facility] ABS. EOSINOPHILS 51 15 - 500 cells/uL [facility] ABS. BASOPHILS 83 0 - 200 cells/uL [facility] SEG NEUTROPHILS 44.9 % [facility] LYMPHOCYTES 45.5 % [facility] MONOCYTES 7.5 % [facility] EOSINOPHILS 0.8 % [facility] BASOPHILS 1.3 % [facility] 12/06/2024 10:2 7 AM CDT 12/06/2024 10:28 AM CDT Narrative [facility] - [facility] - 12/07/2024 5:24 AM CDT FASTING:YES PATIENT UNABLE TO VOID; ADVISED TO RETURN FOR COLLECTION. FASTING: YES Resulting Agency Comment Performing Organization Information: Site ID: [place] Name: [facility] Address: [address] [address] Director: Paz Prakash MD Juanito Chavarria MD LABORATORY Final Result [facility] [address] [place] [address], [place] * VITAMIN D, 25 OH (12/06/2024 10:27 AM CDT) VITAMIN D 25 HYDROXY TOTAL S/P/B 36 30 - 100 ng/mL [facility] Comment: Vitamin D Status 25-OH Vitamin D: Deficiency: <20 ng/mL Insufficiency: 20 - 29 ng/mL Optimal: > or = 30 ng/mL For 25-OH Vitamin D testing on patients on D2-supplementation and patients for whom quantitation of D2 and D3 fractions is required, the QuestAssureD(TM) 25-OH VIT D, (D2,D3), LC/MS/MS is recommended: order code 69695 (patients >2yrs). See Note 1 Note 1 For additional information, please refer to http://education.GoodRx/faq/KYW414 (This link is being provided for informational/ educational purposes only.) 12/06/2024 10:2 7 AM CDT 12/06/2024 10:28 AM CDT Narrative [facility] - [place] [facility] - 12/07/2024 5:24 AM CDT FASTING:YES PATIENT UNABLE TO VOID; ADVISED TO RETURN FOR COLLECTION. FASTING: YES Resulting Agency Comment Performing Organization Information: Site ID: [place] Name: [facility] Address: [address] [place] [phone] Director: Paz Prakash MD Juanito Chavarria MD LABORATORY Final Result Performing Organization Address [facility]/ZIP Co de Phone Number [facility] - [facility] [id number] [place] [address], [place] * COLOGUARD (EXACT SCIENCE) (07/01/2023 6:40 AM LOOP SEWER) COLOGUARD RESULT Negative Negative [facility] (CLIA #:[id number]) Comment: NEGATIVE TEST RESULT. A negative Cologuard [...] Ricks et al, N Engl J Med 2014;370(14):9756-5404) The normal value (reference range) for this assay is negative. COLOGUARD RE-SCREENING RECOMMENDATION: Periodic colorectal cancer screening is an important part of preventive healthcare for asymptomatic individuals at average risk for colorectal cancer. Following a negative Cologuard result, the [place] [employer] Society and U.S. Multi-Society Task Force screening guidelines recommend a Cologuard re-screening interval of 3 years. References: [place] [employer] Guideline for Colorectal Cancer Screening: https://www.cancer.org/cancer/mattu-ojhhcf-lathcf/ujsgijxvg-ekvdnvjrj-beynbqk/ac s-rec ommendations.html.; Chandler DK, Chris CR, Martha BairdK, Colorectal Cancer Screening: Recommendations for Physicians and Patients from the U.S. Multi-Society Task Force on Colorectal Cancer Screening , Am J Gastroenterology 2017; 112:6103-6001. TEST DESCRIPTION: Composite algorithmic analysis of stool [...] (Elizabeth River al, N Engl J Med 2014;370(14):8914-6182.) Cologuard may produce a false negative or false positive result (no colorectal cancer or precancerous polyp present at colonoscopy follow up). A negative Cologuard test result does not guarantee the absence of CRC or advanced adenoma (pre-cancer). The current Cologuard screening interval is every 3 years. ([place] Cancer Society and U.S. Multi-Society Task Force). Cologuard performance data in a 10,000 patient pivotal study using colonoscopy as the reference method can be accessed at the following location: www.[employer]/results. Additional description of the Cologuard test process, warnings and precautions can be found at www.[employer]endizerogPaperSharerd.Site Intelligence. STOOL STOOL SPECIMEN / Unknown 07/01/2023 6:40 AM LOOP SEWER 07/02/2023 6:12 PM LOOP SEWER us Juanito Chavarria MD BODY FLUIDS AND STOOLS ORDERA BLES Final Result [facility] ([facility] [address]) [address] [place] [address], [employer] (CLIA #:[id number]) [address] [place] [address] * MG SCREENING W RADHA SURJIT DIGI [...] Ammon García MD, 12/10/2022 10:44 AM Juanito Chvaarria MD MAMMO Final Result * HEPATITIS C ANTIBODY (12/01/2022 10:20 AM CDT) HEPATITIS C AB NON-REACTI VE NON-REACT [place] 12/01/2022 9:39 PM CDT [facility] Comment: ANTIBODIES TO HCV NOT DETECTED. DOES NOT EXCLUDE THE POSSIBILITY OF EXPOSURE TO HCV. 12/01/2022 10:2 0 AM CDT Juanito Chavarria MD LABORATORY Final Result [facility] [address] [place] [address], [id number] from Last 3 Months or Most Recently Relevant to Health Maintenance Insurance Care Teams Photographic Aide Relationship Specialty Start Date End Date Juanito Chavarria MD [address] [facility] [address] [place] [address] PCP - General FAMILY PRACTICE 07/07/17
--- OUTSIDE RECORDS SUMMARY | 2024-12-09 20:21 | XMS_ITS | Encounter Summary ---
Author Organization [facility] Address [address] [place] [address] Care Team Providers Care Cryptographic Vulnerability Analyst Name Role Phone Juanito Vega MD Primary Care Provider [phone] Encounter Details Date Type Department Care Team (Late st Contact Info) Description 12/11/2023 MyCHotalott Message Enc [facility] Family Medicine - [place] [address] [facility], [address] [place] [phone] Juanito Vega MD [address] [facility] [address] [place], [place] [phone] Hormones Social History Tobacco Use Types Packs/Day [...] documented as of this encounter Care Teams Cryptographic Vulnerability Analyst Relationship Specialty Start Date End Date Juanito Vega MD [address] [place] [address] [place] [address] PCP - General FAMILY PRACTICE 07/07/17 documented as of this encounter
--- OUTSIDE RECORDS SUMMARY | 2024-12-09 20:21 | XMS_ITS | Encounter Summary ---
Author Organization [facility] Address [facility] [place] [address] Care Team Providers Care Trap Puller Name Role Phone Juanito Vega MD Primary Care Provider [phone] Encounter Details Date Type Department Care Team (Late st Contact Info) Description 04/28/2021 Tank Top TVt Message Enc [facility] Family Medicine - [place] [address] [facility], [address] [place] [phone] Juanito Vega MD [address] [address] RE: Question Social History Tobacco [...] on filedocumented in this encounter Care Teams Trap Puller Relationship Specialty Start Date End Date Juanito Vega MD [address] [facility] [address] [place], [place] [phone] PCP - General FAMILY PRACTICE 07/07/17 documented as of this encounter
--- OUTSIDE RECORDS SUMMARY | 2024-12-09 20:21 | XMS_ITS | Encounter Summary ---
Author Organization [facility] Address [address] [place] [address] Care Team Providers Care Relationship Advisor Name Role Phone Juanito Vega MD Primary Care Provider [phone] Encounter Details Date Type Department Care Team (Late st Contact Info) Description 08/18/2024 MyCCO3 Venturest Message Enc [facility] Family Medicine - [place] [address] [facility], [address] [place] [address] Juanito Vega MD [address] [facility] [address] [place], [place] [phone] Update email Social History Tobacco Use Types [...] documented as of this encounter Care Teams Relationship Advisor Relationship Specialty Start Date End Date Juanito Vega MD [address] [place] [address] [place] [address] PCP - General FAMILY PRACTICE 07/07/17 documented as of this encounter
[2024-12-09 20:31] VITALS: BP 145/83; PULSE 84; RESP 17; O2SAT 98
[2024-12-09] MEDS: HYDROcodone/acetaminophen (*CRX) 5-325 MG TABLET 1 TAB PO (20:31)
== END 2024-12-09 21:00 | disposition home or self-care (01) ==
PROVIDERS: Emergency Provider Physician Assistant; PCP Family Medicine
DX: S59.291A Other physeal fracture of lower end of radius, right arm, initial encounter for closed fracture (principal); E78.00 Pure hypercholesterolemia, unspecified; K21.9 Gastro-esophageal reflux disease without esophagitis; F32.A Depression, unspecified; F17.210 Nicotine dependence, cigarettes, uncomplicated; W01.0XXA Fall on same level from slipping, tripping and stumbling without subsequent striking against object, initial encounter
CPT/HCPCS: 29125; 73110; 73130; 99284; A9270

== ENCOUNTER 2024-12-12 09:49 | Outpatient (CLI) | payer OTHER, SELFPAY ==
--- NOTE | 2024-12-12 09:00 | ECG_ITS ---
Test Date: 2024-12-12 10:24:02 Measurements Intervals [place] Rate: 63 P: 46 AR: 137 QRS: 26 QRSD: 85 T: 11 QT: 391 QTc: 401 Interpretive Statements SINUS RHYTHM NONSPECIFIC ST AND T WAVE ABNORMALITY No previous ECG available for comparison Electronically Signed On 12-12-2024 12:00:06 CDT by Rebekah Antonio M.D.
--- OUTSIDE RECORDS SUMMARY | 2024-12-12 10:14 | XMS_ITS | Clinical Summary ---
Author Organization [facility] Address [facility] [place] [address] Care Team Providers Care Security Strategist Name Role Phone Juanito Chavarria MD Primary Care Provider [phone] Allergies No known active allergies Medications metFORMIN [...] Encounters Date Type Department Care Team Description 12/10/2024 Travel 12/09/2024 Scan HEALTH INFO SRVCS Scanned, Doc Med Group 12/07/2024 Results Follow-Up [place] [address] [facility], [address] [address] Juanito Chavarria MD CBC W/DIFF AUTOMATED, COMPREHENSIVE METABOLIC PANEL, ALBUMIN URINE RANDOM W/CREATININE, Additional followed-up results: 3 12/06/2024 10:20 AM CDT Office Visit [facility] [address] [facility], [address] [place] [address] Juanito Chavarria MD Annual 12/06/2024 Travel 11/09/2024 Scan MG HEALTH INFO SRVCS Scanned, [...] Vaccines Completed 11/09/2024, 12/2023, 07/06/2024 PHQ-2 (Physician [place]) Completed 12/06/2024 Meningococcal B Vaccine Aged Out [...] COLOGUARD (EXACT SCIENCE) Routine 07/01/2023 6:40 AM WAX POURER Screen for colon cancer MG SCREENING W [...] URINE RANDOM W/CREATININE (12/06/2024 10:31 AM CDT) CREATININE RANDOM (U) 259 20 - 275 mg/dL [facility] MICROALBUMIN (U) 1.4 See Note: mg/dL [...] AM CDT 12/06/2024 10:32 AM CDT Narrative [facility] [place] - 12/07/2024 6:22 AM CDT SPLIT 12/06/2024 FROM [id number] Resulting Agency Comment Performing Organization Information: Site ID: [id number] Name: Lawn [facility]worth Address: [address] [place] [id number] Director: Paz Prakash MD Juanito Chavarria MD URINE ORDERABLES Final Result Performing Organization Address [facility] de Phone Number [facility] Precious [facility] [employer] [id number] [place] [address] * TSH W/REFLEX (12/06/2024 10:27 AM CDT) TSH 0.94 0.40 - 4.50 mIU/L [facility] [employer] [facility] 12/06/2024 10:2 7 AM CDT 12/06/2024 10:28 AM CDT Narrative [facility] Precious JAMA - 12/07/2024 5:24 AM CDT FASTING:YES PATIENT UNABLE TO VOID; ADVISED TO RETURN FOR COLLECTION. FASTING: YES Resulting Agency Comment Performing Organization Information: Site ID: [place] Name: [facility] Address: [address] [place] [id number] Director: Paz Prakash MD Juanito Chavarria MD LABORATORY Final Result Performing Organization Address [facility] Co de Phone Number JESUS [facility] [employer] [address] [address], * COMPREHENSIVE METABOLIC PANEL (12/06/2024 10:27 AM CDT) GLUCOSE 92 65 - 99 mg/dL [facility] Comment: Fasting reference interval BUN 13 7 - 25 mg/dL [facility] CREATININE S/P/B 0.82 0.50 - 1.03 mg/dL [facility] GFR ESTIMATE 84 > OR = 60 mL/min/1. 73m2 [facility] BUN CREATININE RATIO SEE NOTE: 6 - 22 (calc) [facility] Comment: Not Reported: BUN and Creatinine are within reference range. SODIUM S/P/B 138 135 - 146 mmol/L [facility] POTASSIUM S/P/B 4.4 3.5 - 5.3 mmol/L [facility] CHLORIDE S/P/B 103 98 - 110 mmol/L [facility] CO2 27 20 - 32 mmol/L [facility] CALCIUM S/P/B 9.4 8.6 - 10.4 mg/dL [facility] [employer] [facility] TOTAL PROTEIN S/P/B 7.1 6.1 - 8.1 g/dL [facility] [employer] [facility] ALBUMIN S/P/B 4.6 3.6 - 5.1 g/dL [facility] [employer] [facility] GLOBULIN 2.5 1.9 - 3.7 g/dL (calc) [facility] [employer] [facility] ALBUMIN/GLOBULI N RATIO 1.8 1.0 - 2.5 (calc) [facility] [employer] [facility] BILIRUBIN TOTAL S/P/B 0.5 0.2 - 1.2 mg/dL [facility] [employer] [facility] ALKALINE PHOSPHATASE S/P/B 87 37 - 153 U/L [facility] AST 16 10 - 35 U/L [facility] ALT 21 6 - 29 U/L [facility] 12/06/2024 10:2 7 AM CDT 12/06/2024 10:28 AM CDT Narrative [facility] - [place] [facility] - 12/07/2024 5:24 AM CDT FASTING:YES PATIENT UNABLE TO VOID; ADVISED TO RETURN FOR COLLECTION. FASTING: YES Resulting Agency Comment Performing Organization Information: Site ID: [place] Name: Lawn Love[facility]ron Address: [address] [address] Director: Paz Prakash MD Juanito Chavarria MD LABORATORY Final Result [facility] [place] [facility] [address] [address], [place] * (ABNORMAL) LIPID PANEL (12/06/2024 10:27 AM CDT) CHOLESTEROL 215(H) <200 mg/dL [facility] HDL 52 > OR = 50 mg/dL [facility] TRIGLYCERIDES 119 <150 mg/dL [facility] LDL (CALCULATED) 139(H) mg/dL (calc) [facility] Comment: Reference range: <100 Desirable range <100 mg/dL for primary prevention; <70 mg/dL for patients with CHD or diabetic patients with > or = 2 CHD risk factors. LDL-C is now calculated using the Jori calculation, which is a validated novel method providing better accuracy than the Friedewald equation in the estimation of LDL-C. Orestes ROCHA et al. MARY. 2013;310(19): 9992-7199 (http://education.BioScrip/faq/YFQ806) CHOL/HDL RATIO 4.1 <5.0 (calc) [facility] NON HDL CHOLESTEROL 163(H) <130 mg/dL (calc) [facility] Comment: For patients with diabetes plus 1 major ASCVD risk factor, treating to a non-HDL-C goal of <100 mg/dL (LDL-C of <70 mg/dL) is considered a therapeutic option. 12/06/2024 10:2 7 AM CDT 12/06/2024 10:28 AM CDT Narrative JESUS JAMA - 12/07/2024 5:24 AM CDT FASTING:YES PATIENT UNABLE TO VOID; ADVISED TO RETURN FOR COLLECTION. FASTING: YES Resulting Agency Comment Performing Organization Information: Site ID: [place] Name: Jesus Oden Address: [address] [address] Director: Paz Prakash MD Juanito Chavarria MD LABORATORY Final Result JESUS JAMA [facility] [address] [address], * (ABNORMAL) CBC W/DIFF AUTOMATED (12/06/2024 10:27 AM CDT) WBC 6.4 3.8 - 10.8 Thousand/ uL [facility] RBC 4.67 3.80 - 5.10 Million/u L [facility] HGB 14.7 11.7 - 15.5 g/dL [facility] HCT 45.2(H) 35.0 - 45.0 % [facility] MCV 96.8 80.0 - 100.0 fL [facility] MCH 31.5 27.0 - 33.0 pg [facility] MCHC 32.5 32.0 - 36.0 g/dL [facility] Comment: For adults, a slight decrease in the calculated MCHC value (in the range of 30 to 32 g/dL) is most likely not clinically significant; however, it should be interpreted with caution in correlation with other red cell parameters and the patient's clinical condition. RDW 12.6 11.0 - 15.0 % [facility] PLT 324 140 - 400 Thousand/ uL [facility] MPV 9.6 7.5 - 12.5 fL [facility] ABS. NEUTROPHILS 2,874 1,500 - 7,800 cells/uL [facility] ABS. LYMPHOCYTES 2,912 850 - 3,900 cells/uL [facility] ABS. MONOCYTES 480 200 - 950 cells/uL [facility] ABS. EOSINOPHILS 51 15 - 500 cells/uL [facility] ABS. BASOPHILS 83 0 - 200 cells/uL [facility] SEG NEUTROPHILS 44.9 % [facility] LYMPHOCYTES 45.5 % [facility] MONOCYTES 7.5 % [facility] EOSINOPHILS 0.8 % [facility] BASOPHILS 1.3 % [facility] 12/06/2024 10:2 7 AM CDT 12/06/2024 10:28 AM CDT Narrative Turning Art [facility] - 12/07/2024 5:24 AM CDT FASTING:YES PATIENT UNABLE TO VOID; ADVISED TO RETURN FOR COLLECTION. FASTING: YES Resulting Agency Comment Performing Organization Information: Site ID: [place] Name: [facility] Address: [id number] [place], [place] [address]disha EpworthA[place]EM [place] [address] Director: Paz Prakash MD us Juanito Chavarria MD LABORATORY Final Result [facility] [place] [facility] [employer] J[facility]ARI [facility] [address] [place] [address], * VITAMIN D, 25 OH (12/06/2024 10:27 AM CDT) VITAMIN D 25 HYDROXY TOTAL S/P/B 36 30 - 100 ng/mL [facility] Comment: Vitamin D Status 25-OH Vitamin D: Deficiency: <20 ng/mL Insufficiency: 20 - 29 ng/mL Optimal: > or = 30 ng/mL For 25-OH Vitamin D testing on patients on D2-supplementation and patients for whom quantitation of D2 and D3 fractions is required, the QuestAssureD(TM) 25-OH VIT D, (D2,D3), LC/MS/MS is recommended: order code 26430 (patients >2yrs). See Note 1 Note 1 For additional information, please refer to http://education.BioScrip/faq/QZC766 (This link is being provided for informational/ educational purposes only.) 12/06/2024 10:2 7 AM CDT 12/06/2024 10:28 AM CDT Narrative JESUS JAMA - 12/07/2024 5:24 AM CDT FASTING:YES PATIENT UNABLE TO VOID; ADVISED TO RETURN FOR COLLECTION. FASTING: YES Resulting Agency Comment Performing Organization Information: Site ID: [place] Name: [facility] Address: [address] [place] [address] Director: Paz Prakash MD us Juanito Chavarria MD LABORATORY Final Result JESUS JAMA [employer] JAMARI [facility] [address] [facility] [place] [address], * COLOGUARD (EXACT SCIENCE) (07/01/2023 6:40 AM WAX POURER) COLOGUARD RESULT Negative Negative [facility] [employer] (CLIA #:[id number]) Comment: NEGATIVE TEST RESULT. A negative Cologuard [...] Ricks et al, N Engl J Med 2014;370(14):6102-6495) The normal value (reference range) for this assay is negative. COLOGUARD RE-SCREENING RECOMMENDATION: Periodic colorectal cancer screening is an important part of preventive healthcare for asymptomatic individuals at average risk for colorectal cancer. Following a negative Cologuard result, the [place] Cancer Society and U.S. Multi-Society Task Force screening guidelines recommend a Cologuard re-screening interval of 3 years. References: [place] [employer] Guideline for Colorectal Cancer Screening: https://www.cancer.org/cancer/jtefe-xfcgry-ukwchu/hyakhdzje-ockqncqyh-knjbyag/ac s-rec ommendations.html.; Chandler DK, Chris TERRAZAS, Martha BairdK, Colorectal Cancer Screening: Recommendations for Physicians and Patients from the U.S. Multi-Society Task Force on Colorectal Cancer Screening , Am J Gastroenterology 2017; 112:8586-3176. TEST DESCRIPTION: Composite algorithmic analysis of stool [...] (Elizabeth River al, N Engl J Med 2014;370(14):1781-8234.) Cologuard may produce a false negative or false positive result (no colorectal cancer or precancerous polyp present at colonoscopy follow up). A negative Cologuard test result does not guarantee the absence of CRC or advanced adenoma (pre-cancer). The current Cologuard screening interval is every 3 years. ([place] Cancer Society and U.S. Multi-Society Task Force). Cologuard performance data in a 10,000 patient pivotal study using colonoscopy as the reference method can be accessed at the following location: www.[employer].Tier 3/results. Additional description of the Cologuard test process, warnings and precautions can be found at www.cologuard.com. STOOL STOOL SPECIMEN / Unknown 07/01/2023 6:40 AM WAX POURER 07/02/2023 6:12 PM WAX POURER us Juanito Chavarria MD BODY FLUIDS AND STOOLS ORDERA BLES Final Result [employer] ([employer] [address] LAB) [address] [place] [address], [employer] (CLIA #:[id number]) [address] [place] [address] * MG SCREENING W RADHA SURJIT DIGI [...] VE NON-REACT ARIE 12/01/2022 9:39 PM CDT [facility] Comment: ANTIBODIES TO HCV NOT DETECTED. DOES NOT EXCLUDE THE POSSIBILITY OF EXPOSURE TO HCV. 12/01/2022 10:2 0 AM CDT Juanito Chavarria MD LABORATORY Final Result [facility] [address] [place] [address], [id number] from Last 3 Months or Most Recently Relevant to Health Maintenance Insurance [employer] Care Teams Security Strategist Relationship Specialty Start Date End Date Juanito Chavarria MD [address] [facility] [address] [place] [address] PCP - General FAMILY PRACTICE 07/07/17
--- OUTSIDE RECORDS SUMMARY | 2024-12-12 10:14 | XMS_ITS | Encounter Summary ---
Author Organization [facility] Address [facility] [place] [address] Care Team Providers Care Priming Machine Operator Name Role Phone Juanito Vega MD Primary Care Provider [phone] Encounter Details Date Type Department Care Team (Late st Contact Info) Description 08/19/2020 NextUsert Message Enc [facility] Medical Group Family Medicine - [place] [address] [facility], [address] [place] [phone] Juanito Vega MD [address] [address] RE: Question Social History Tobacco [...] on filedocumented in this encounter Care Teams Priming Machine Operator Relationship Specialty Start Date End Date Juanito Vega MD [address] [facility] [address] [place], [place] [id number] PCP - General FAMILY PRACTICE 07/07/17 documented as of this encounter
--- OUTSIDE RECORDS SUMMARY | 2024-12-12 10:14 | XMS_ITS | Encounter Summary ---
Author Organization [facility] Address [facility] [place] [address] Care Team Providers Care Crushing Foreman Name Role Phone Juanito Vega MD Primary Care Provider [phone] Encounter Details Date Type Department Care Team (Late st Contact Info) Description 04/28/2021 TabSprintt Message Enc [facility] Medical Group Family Medicine - [place] [address] [facility], [address] [place] [phone] Juanito Vega MD [address] [address] RE: Question Social History Tobacco [...] on filedocumented in this encounter Care Teams Crushing Foreman Relationship Specialty Start Date End Date Juanito Vega MD [address] [facility] [address] [place], [place] [phone] PCP - General FAMILY PRACTICE 07/07/17 documented as of this encounter
--- OUTSIDE RECORDS SUMMARY | 2024-12-12 10:14 | XMS_ITS | Encounter Summary ---
Author Organization [facility] Address [address] [place] [address] Care Team Providers Care Pharmacogeneticist Name Role Phone Juanito Vega MD Primary Care Provider [phone] Encounter Details Date Type Department Care Team (Late st Contact Info) Description 12/11/2023 MyCBeInSynct Message Enc [facility] Medical Group Family Medicine - [place] [address] [facility], [address] [place] [phone] Juanito Vega MD [address] [facility] [address] [place], [place] [phone] Hormones Social History Tobacco Use Types Packs/Day [...] documented as of this encounter Care Teams Pharmacogeneticist Relationship Specialty Start Date End Date Juanito Vega MD [address] [address] [place] [address] PCP - General FAMILY PRACTICE 07/07/17 documented as of this encounter
--- OUTSIDE RECORDS SUMMARY | 2024-12-12 10:14 | XMS_ITS | Encounter Summary ---
Author Organization [facility] Address [address] [place] [address] Care Team Providers Care Conveyor Feeder Name Role Phone Juanito Vega MD Primary Care Provider [phone] Encounter Details Date Type Department Care Team (Late st Contact Info) Description 08/18/2024 MyC7 Oaks Pharm[employer]t Message Enc [facility] Family Medicine - [place] [address] [facility], [address] [place] [address] Juanito Vega MD [address] [facility] [address] [place], [place] [phone] Update email Social History Tobacco Use Types [...] documented as of this encounter Care Teams Conveyor Feeder Relationship Specialty Start Date End Date Juanito Vega MD [address] [place] [address] [place] [address] PCP - General FAMILY PRACTICE 07/07/17 documented as of this encounter
--- OUTSIDE RECORDS SUMMARY | 2024-12-12 10:14 | XMS_ITS | Encounter Summary ---
Author Organization [facility] Address [address] [place] [address] Care Team Providers Care Pet Trainer Name Role Phone Juanito Vega MD Primary Care Provider [phone] Encounter Details Date Type Department Care Team (Late st Contact Info) Description 10/26/2021 MyChart Message Enc [facility] Medical Group Family Medicine - [place] [address] [facility], [address] [place] [phone] Juanito Vega MD [address] [facility] [address] [place] [address] Neck pain Social History Tobacco [...] Total Score: 0 07/02/20 21 2:34 PM SLOT EDITOR documented as of this encounter Care Teams Pet Trainer Relationship Specialty Start Date End Date Juanito Vega MD [address] [address] PCP - General FAMILY PRACTICE 07/07/17 documented as of this encounter
--- OUTSIDE RECORDS SUMMARY | 2024-12-12 10:14 | XMS_ITS | Encounter Summary ---
Author Organization [facility] Address [address] [place] [address] Care Team Providers Care Dedicated Intermodal Truck Driver Name Role Phone Juanito Vega MD Primary Care Provider [phone] Encounter Details Date Type Department Care Team (Latest Contact Info) Description 03/16/2022 MyCPure Energies Groupt Message Enc [facility] Medical Group Family Medicine - [place] [address] [facility], [address] [place] [address] Juanito Vega MD [address] [facility] [address] [place] [address] Joint Terminal Attack Controller referral request Social History Tobacco Use Types [...] documented as of this encounter Care Teams Dedicated Intermodal Truck Driver Relationship Specialty Start Date End Date Juanito Vega MD [address] [place] [address] [place] [address] PCP - General FAMILY PRACTICE 07/07/17 documented as of this encounter
--- OUTSIDE RECORDS SUMMARY | 2024-12-12 10:14 | XMS_ITS | Encounter Summary ---
Author Organization [facility] Address [address] [place] [address] Care Team Providers Care Photo Stylist Name Role Phone Juanito Vega MD Primary Care Provider [phone] Encounter Details Date Type Department Care Team (Latest Contact Info) Description 12/09/2024 Scan [facility] HEALTH INFO SRVCS Scanned, Doc Med Group Social History Tobacco Use Types Packs/Day Years Used Date Smoking Tobacco: Former Cigarettes 1 30 Q uit: 1989 Smokeless Tobacco: Never Comments:to discuss with patricia [...] documented as of this encounter Care Teams Photo Stylist Relationship Specialty Start Date End Date Juanito Vega MD [address] [facility] [address] [place] [address] PCP - General FAMILY PRACTICE 07/07/17 documented as of this encounter
[2024-12-12 10:59] LABS: Basophils Absolute Auto 0.1 K/mm3 (0.0-0.1); Basophils Percent Auto 0.7 % (0.2-1.2); Eosinophils Absolute Auto 0.1 K/mm3 (0-0.3); Eosinophils Percent Auto 0.9 % (0-4.4); Hematocrit 40.7 % (37.0-47.0); Hemoglobin 12.9 g/dL (12.0-15.0); Immature Granulocyte Absolute 0.02 K/mm3 (0.00-0.031); Immature Granulocyte Percent A 0.3 % (0-0.5); Lymphocytes Absolute Auto 3.03 K/mm3 (0.9-3.2); Lymphocytes Percent Auto 39.5 % (18.3-44.2); Mean Corpuscular HGB Conc 31.7 g/dl (32-36); Mean Corpuscular Hemoglobin 30.6 pg (26-34); Mean Corpuscular Volume 96.4 fl (80-100); Mean Platelet Volume 9.3 fl (7.4-10.4); Monocytes Absolute Auto 0.4 K/mm3 (0.1-0.6); Monocytes Percent Auto 5.6 % (2.6-8.5); Neutrophils Absolute Auto 4.1 K/mm3 (1.3-6.7); Platelet Count Result 280 k/mm3 (150-375); Red Blood Count 4.22 M/mm3 (4.2-5.4); Red Cell Distribution Width 12.5 % (11.5-14.5); White Blood Count 7.7 K/mm3 (4.5-10.0)
== END 2024-12-12 09:50 | disposition home or self-care (01) ==
PROVIDERS: PCP Family Medicine; Visit Provider Orthopaedic Surgery
DX: S52.90XA Unspecified fracture of unspecified forearm, initial encounter for closed fracture (principal); X58.XXXA Exposure to other specified factors, initial encounter; R94.31 Abnormal electrocardiogram [ECG] [EKG]
CPT/HCPCS: 36415; 85025; 93005

== ENCOUNTER 2024-12-14 00:24 | Day surgery (SDC) | payer OTHER, SELFPAY ==
[2024-12-12 11:51] VITALS: BMI 32.4
--- NOTE | 2024-12-12 12:03 | PC.NURSE ---
Report to the Outpatient Waiting Room, entrance under the green pavilion located off [facility], at time _1000_ on date _[id number]_. Planned Procedure Time: _1200_.? Time changes happen often and if your time is changed the preop area will call you the afternoon before. - You and your visitor will be asked to self-screen and do not enter if you have any COVID symptoms. Please call surgeon if you need to reschedule. - A mask is optional within the hospital at this time. Patients may have clear liquids (water, carbonated beverages, clear teas, apple juice) until 3 hours prior to surgery with a maximum of 20 ounces. - No food from midnight until time of surgery and no smoking, or chewing tobacco (or any form of nicotine). No chewing gum, candy or mints. Take only the following medications with a SIP of water on the morning of surgery: _Escitalopram, Buspirone and if needed Hydrocodone. DO NOT STOP ANY OF YOUR OTHER PRESCRIPTION MEDICATIONS PRIOR TO SURGERY EXCEPT THE FOLLOWING Hold all vitamins and supplements for 3 days per anesthesiologist. Medications to discontinue per physician Date to take last dose Please no make-up, nail mongolian, hairspray, perfume, deodorant, or body powder the day of surgery.? No jewelry (including any body piercings) or valuables the day of surgery, leave them at home.? Please take a shower or bath the night before, or the morning of, surgery with an antibacterial soap.? Wear comfortable, loose fitting clothing.? - Jewelry must be removed prior to entering the operating room.? Rings and piercings that are not removed may be cut off. - The hospital will not accept responsibility for valuables.? - Please leave all valuables, including medications, at home the day of surgery. If you are going home after surgery, a licensed restaurant delivery driver must drive you home.? - NO public transportation without another adult if you receive anesthesia. - We recommend that an adult stay with you for 24 hours following discharge. - We also recommend that you do not drive, make important decision, drink alcoholic beverages, or take any drugs that were not prescribed by your health care provider for at least 24 hours after your discharge time. Follow any additional instructions given to you from your surgeon. Telephone instructions given to __Mayela___and asked if any additional questions and then verbalized understanding. Patient advised to call surgeon office or pre surgery nurse liaison [phone] if any additional questions.
[2024-12-14] VITALS (10 sets, daily range): BP systolic 129–152; BP diastolic 55–88; PULSE 65–76; RESP 12–16; TEMP 36.1–36.5; O2SAT 95–100
--- NOTE | ~2024-12-14 | XR_ITS ---
EXAMINATION: XR surgery orthopedic DATE: 12/14/2024 13:11 INDICATION: ORIF right wrist fracture TECHNIQUE: 2 fluoroscopic images of the right wrist were obtained during procedure performed by Dr. Joanne troncoso. Radiologist was not present for the imaging or procedure. The amount of fluoroscopy time used during this procedure was 0.5 minutes. Total DAP was 0.1999 Gycm^2. COMPARISON: 12/09/24 FINDINGS: Interval open reduction and internal fixation of the previously seen external fracture of the distal left radius which is now in near-anatomic alignment with volar T plate and screw fixation. No other f ractures identified. Joint spaces are normal. IMPRESSION: 1. Near-anatomic alignment post open reduction internal fixation of a distal right radial fracture. Reviewed, dictated and finalized at location A. IMPRESSION: 1. Near-anatomic alignment post open reduction internal fixation of a distal ri ght radial fracture.
--- OUTSIDE RECORDS SUMMARY | 2024-12-14 00:32 | XMS_ITS | Encounter Summary ---
Author Organization [facility] Address [facility] [place] [address] Care Team Providers Care Clinical Documentation Clerk Name Role Phone Juanito Vega MD Primary Care Provider [phone] Encounter Details Date Type Department Care Team (Late st Contact Info) Description 04/28/2021 eoSemit Message Enc [facility] Medical Group Family Medicine - [place] [address] [facility], [address] [place] [phone] Juanito Vega MD [address] [address] RE: Question Social History Tobacco [...] on filedocumented in this encounter Care Teams Clinical Documentation Clerk Relationship Specialty Start Date End Date Juanito Vega MD [address] [facility] [address] [place], [place] [phone] PCP - General FAMILY PRACTICE 07/07/17 documented as of this encounter
--- OUTSIDE RECORDS SUMMARY | 2024-12-14 00:32 | XMS_ITS | Encounter Summary ---
Author Organization [facility] Address [address] [place] [address] Care Team Providers Care Maintenance Painter Name Role Phone Juanito Vega MD Primary Care Provider [phone] Encounter Details Date Type Department Care Team [...] documented as of this encounter Care Teams Maintenance Painter Relationship Specialty Start Date End Date Juanito Vega MD [address] [facility] [address] [place] [address] PCP - General FAMILY PRACTICE 07/07/17 documented as of this encounter
--- OUTSIDE RECORDS SUMMARY | 2024-12-14 00:32 | XMS_ITS | Encounter Summary ---
Author Organization [facility] Address [address] [place] [address] Care Team Providers Care Warper Fixer Name Role Phone Juanito Vega MD Primary Care Provider [phone] Encounter Details Date Type Department Care Team (Late st Contact Info) Description 10/26/2021 MyChart Message Enc [facility] Medical Group Family Medicine - [place] [address] [facility], [address] [place] [phone] Juanito Vega MD [address] [facility] [address] [place] [address] Neck pain Social History Tobacco [...] Total Score: 0 07/02/20 21 2:34 PM LACQUER POLISHER documented as of this encounter Care Teams Warper Fixer Relationship Specialty Start Date End Date Juanito Vega MD [address] [address] PCP - General FAMILY PRACTICE 07/07/17 documented as of this encounter
--- OUTSIDE RECORDS SUMMARY | 2024-12-14 00:32 | XMS_ITS | Encounter Summary ---
Author Organization [facility] Address [address] [place] [address] Care Team Providers Care Cosmetic Account Coordinator Name Role Phone Juanito Vega MD Primary Care Provider [phone] Encounter Details Date Type Department Care Team (Late st Contact Info) Description 08/18/2024 MyCLevelert Message Enc [facility] Medical Group Family Medicine - [place] [address] [facility], [address] [place] [address] Juanito Vega MD [address] [facility] [address] [place], [place] [phone] Update email Social History Tobacco Use Types [...] documented as of this encounter Care Teams Cosmetic Account Coordinator Relationship Specialty Start Date End Date Juanito Vega MD [address] [address] [place] [address] PCP - General FAMILY PRACTICE 07/07/17 documented as of this encounter
--- OUTSIDE RECORDS SUMMARY | 2024-12-14 00:32 | XMS_ITS | Encounter Summary ---
Author Organization [facility] Address [address] [place] [address] Care Team Providers Care Technical Staff Engineer Name Role Phone Juanito Vega MD Primary Care Provider [phone] Reason for Visit * Reason Comments Lab (SCAN) Encounter Details Date Type Department Care Team (Latest Contact Info) Description 12/12/2024 Scan [facility] INFO SRVCS Scanned, Doc Med Group Lab (SCAN) Social History Tobacco Use Types Packs/Day Years [...] on file documented as of this encounter Procedures Procedure Name Priority Date/Time Associated Diagnosis Comments OUTSIDE LAB (SCAN ORDER) 12/12/2024 documented in this encounter Results * OUTSIDE LAB (SCAN ORDER) (12/12/2024) 12/12/2024 us Doc Med Group Scanned SCANNING Final Resu lt documented in this encounter Visit Diagnoses Not on filedocumented in this encounter Additional Health Concerns Assessment Noted Time PHQ-9 Depression Total Score: 0 10/30/19 22 10:50 AM CDT documented as of this encounter Care Teams Technical Staff Engineer Relationship Specialty Start Date End Date Juanito Vega MD [address] [address] [place] [address] PCP - General FAMILY PRACTICE 07/07/17 documented as of this encounter
--- OUTSIDE RECORDS SUMMARY | 2024-12-14 00:32 | XMS_ITS | Encounter Summary ---
Author Organization [facility] Address [address] [place] [address] Care Team Providers Care Yeast Supervisor Name Role Phone Juanito Vega MD Primary Care Provider [phone] Encounter Details Date Type Department Care Team (Late st Contact Info) Description 12/11/2023 MyCSavaJe Technologiest Message Enc [facility] Medical Group Family Medicine - [place] [address] [facility], [address] [place] [phone] Juanito Vega MD [address] [facility] [address] [place], [place] [phone] Hormones Social History Tobacco Use Types Packs/Day [...] documented as of this encounter Care Teams Yeast Supervisor Relationship Specialty Start Date End Date Juanito Vega MD [address] [address] [place] [address] PCP - General FAMILY PRACTICE 07/07/17 documented as of this encounter
--- OUTSIDE RECORDS SUMMARY | 2024-12-14 00:32 | XMS_ITS | Encounter Summary ---
Author Organization [facility] Address [facility] [place] [address] Care Team Providers Care Drop Worker Name Role Phone Juanito Vega MD Primary Care Provider [phone] Encounter Details Date Type Department Care Team (Late st Contact Info) Description 08/19/2020 MetroLinkedt Message Enc [facility] Medical Group Family Medicine - [place] [address] [facility], [address] [place] [phone] Juanito Vega MD [address] [address] RE: Question Social History Tobacco [...] on filedocumented in this encounter Care Teams Drop Worker Relationship Specialty Start Date End Date Juanito Vega MD [address] [facility] [address] [place], [place] [phone] PCP - General FAMILY PRACTICE 07/07/17 documented as of this encounter
--- OUTSIDE RECORDS SUMMARY | 2024-12-14 00:32 | XMS_ITS | Encounter Summary ---
Author Organization [facility] Address [address] [place] [address] Care Team Providers Care Pharmacy Sales Assistant Name Role Phone Juanito Vega MD Primary Care Provider [phone] Encounter Details Date Type Department Care Team (Latest Contact Info) Description 03/16/2022 MyCCircleUpt Message Enc [facility] Medical Group Family Medicine - [place] [address] [facility], [address] [place] [address] Juanito Vega MD [address] [facility] [address] [place] [address] Reel Fed Printer referral request Social History Tobacco Use Types [...] documented as of this encounter Care Teams Pharmacy Sales Assistant Relationship Specialty Start Date End Date Juanito Vega MD [address] [address] [place] [address] PCP - General FAMILY PRACTICE 07/07/17 documented as of this encounter
--- OUTSIDE RECORDS SUMMARY | 2024-12-14 00:32 | XMS_ITS | Clinical Summary ---
Author Organization [facility] Address [facility] [place] [address] Care Team Providers Care Filling Carrier Name Role Phone Juanito Chavarria MD Primary Care Provider [phone] Allergies No known active allergies Medications metFORMIN [...] Encounters Date Type Department Care Team Description 12/12/2024 Scan [facility] INFO SRVCS Scanned, Doc Med Group Lab (SCAN) 12/10/2024 Travel 12/09/2024 Scan [facility] INFO SRVCS Scanned, Doc Med Group 12/07/2024 Results Follow-Up [address], [address] [place] [phone] Juanito Chavarria MD CBC W/DIFF AUTOMATED, COMPREHENSIVE METABOLIC PANEL, ALBUMIN URINE RANDOM W/CREATININE, Additional followed-up results: 3 12/06/2024 10:20 AM CDT Office Visit [facility] [address] [facility], [address] [place] [phone] Juanito Chavarria MD Annual 12/06/2024 Travel 11/09/2024 [...] Vaccines Completed 11/09/2024, 12/2023, 07/06/2024 PHQ-2 (Physician [facility] [place]) Completed 12/06/2024 Meningococcal B Vaccine Aged Out [...] Diagnosis Comments OUTSIDE LAB (SCAN ORDER) 12/12/2024 ALBUMIN URINE RANDOM W/CREATININE Routine 12/06/2024 10:31 [...] COLOGUARD (EXACT SCIENCE) Routine 07/01/2023 6:40 AM VOLUNTEER SPECIALIST Screen for colon cancer MG SCREENING W [...] Recently Relevant to Health Maintenance Results * OUTSIDE LAB (SCAN ORDER) (12/12/2024) 12/12/2024 us Doc Med [facility] Scanned SCANNING Final Resu lt * ALBUMIN URINE RANDOM W/CREATININE (12/06/2024 10:31 AM CDT) CREATININE RANDOM (U) 259 20 - 275 mg/dL [facility] MICROALBUMIN (U) 1.4 See Note: mg/dL [facility] Comment: Reference Range: Reference Range Not established MICROALB/CREAT 5 <30 mg/g creat [facility] Comment: The ADA defines abnormalities in albumin [...] AM CDT 12/06/2024 10:32 AM CDT Narrative [facility] [place] [facility] - 12/07/2024 6:22 AM CDT SPLIT 12/06/2024 FROM [id number] Resulting Agency Comment Performing Organization Information: Site ID: [place] Name: [facility] Address: [address] [place] [phone] Director: Paz Prakash MD Juanito Chavarria MD URINE ORDERABLES Final Result [facility] - [place] [facility] [id number] [place] [address], * TSH W/REFLEX (12/06/2024 10:27 AM CDT) Pathologist [facility] TSH 0.94 0.40 - 4.50 mIU/L [facility] 12/06/2024 10:2 7 AM CDT 12/06/2024 10:28 AM CDT Narrative [facility] - 12/07/2024 5:24 AM CDT FASTING:YES PATIENT UNABLE TO VOID; ADVISED TO RETURN FOR COLLECTION. FASTING: YES Resulting Agency Comment Performing Organization Information: Site ID: [place] Name: [facility] Address: [address] [place] [id number] Director: Paz Prakash MD Juanito Chavarria MD LABORATORY Final Result [facility] [place] [facility] [address] [address] [address], * COMPREHENSIVE METABOLIC PANEL (12/06/2024 10:27 AM CDT) GLUCOSE 92 65 - 99 mg/dL [facility] Comment: Fasting reference interval BUN 13 7 - 25 mg/dL [facility] [employer] [facility] CREATININE S/P/B 0.82 0.50 - 1.03 mg/dL [facility] GFR ESTIMATE 84 > OR = 60 mL/min/1. 73m2 [facility] BUN CREATININE RATIO SEE NOTE: (calc) [facility] Comment: Not Reported: BUN and Creatinine are within reference range. SODIUM S/P/B 138 135 - 146 mmol/L [facility] POTASSIUM S/P/B 4.4 3.5 - 5.3 mmol/L [facility] CHLORIDE S/P/B 103 98 - 110 mmol/L [facility] CO2 27 20 - 32 mmol/L [facility] CALCIUM S/P/B 9.4 8.6 - 10.4 mg/dL [facility] TOTAL PROTEIN S/P/B 7.1 6.1 - 8.1 g/dL [facility] ALBUMIN S/P/B 4.6 3.6 - 5.1 g/dL [facility] GLOBULIN 2.5 1.9 - 3.7 g/dL (calc) [facility] ALBUMIN/GLOBULI N RATIO 1.8 1.0 - 2.5 (calc) [facility] BILIRUBIN TOTAL S/P/B 0.5 0.2 - 1.2 mg/dL [facility] ALKALINE PHOSPHATASE S/P/B 87 37 - 153 U/L [facility] AST 16 10 - 35 U/L [facility] ALT 21 6 - 29 U/L [facility] 12/06/2024 10:2 7 AM CDT 12/06/2024 10:28 AM CDT Narrative [facility] [place] [facility] - 12/07/2024 5:24 AM CDT FASTING:YES PATIENT UNABLE TO VOID; ADVISED TO RETURN FOR COLLECTION. FASTING: YES Resulting Agency Comment Performing Organization Information: Site ID: [place] Name: Jesus Oden Address: [address] [address] Director: Paz Prakash MD Juanito Chavarria MD LABORATORY Final Result [facility] [place] [address] [address] [address], * (ABNORMAL) LIPID PANEL (12/06/2024 10:27 AM CDT) CHOLESTEROL 215(H) <200 mg/dL [facility] HDL 52 > OR = 50 mg/dL [facility] TRIGLYCERIDES 119 <150 mg/dL [facility] LDL (CALCULATED) 139(H) mg/dL (calc) [facility] Comment: Reference range: <100 Desirable range <100 mg/dL for primary prevention; <70 mg/dL for patients with CHD or diabetic patients with > or = 2 CHD risk factors. LDL-C is now calculated using the Orestes-Ishaan calculation, which is a validated novel method providing better accuracy than the Friedewald equation in the estimation of LDL-C. Orestes SS et al. MARY. 2013;310(19): 9063-3951 (http://education.[employer]/faq/GBU045) CHOL/HDL RATIO 4.1 <5.0 (calc) [facility] NON HDL CHOLESTEROL 163(H) <130 mg/dL (calc) [facility] Comment: For patients with diabetes plus [...] Performing Organization Information: Site ID: AZEEM Name: Jesus Oden Address: [address] [address] Director: Paz Prakash MD Juanito Chavarria MD LABORATORY Final Result [facility] [place] [address] [address] [address], * (ABNORMAL) CBC W/DIFF AUTOMATED (12/06/2024 10:27 AM CDT) Pathologist [facility] WBC 6.4 3.8 - 10.8 Thousand/ uL [facility] RBC 4.67 3.80 - 5.10 Million/u L [facility] HGB 14.7 11.7 - 15.5 g/dL [facility] HCT 45.2(H) 35.0 - 45.0 % [facility] MCV 96.8 80.0 - 100.0 fL [facility] MCH 31.5 27.0 - 33.0 pg [facility] MCHC 32.5 32.0 - 36.0 g/dL [facility] Comment: For adults, a slight decrease in the calculated MCHC value (in the range of 30 to 32 g/dL) is most likely not clinically significant; however, it should be interpreted with caution in correlation with other red cell parameters and the patient's clinical condition. RDW 12.6 11.0 - 15.0 % [facility] PLT 324 140 - 400 Thousand/ uL [facility] MPV 9.6 7.5 - 12.5 fL [facility] ABS. NEUTROPHILS 2,874 1,500 - 7,800 cells/uL [facility] ABS. LYMPHOCYTES 2,912 850 - 3,900 cells/uL [facility] ABS. MONOCYTES 480 200 - 950 cells/uL [facility] ABS. EOSINOPHILS 51 15 - 500 cells/uL [facility] ABS. BASOPHILS 83 0 - 200 cells/uL [facility] SEG NEUTROPHILS 44.9 % [facility] LYMPHOCYTES 45.5 % [facility] MONOCYTES 7.5 % [facility] EOSINOPHILS 0.8 % [facility] BASOPHILS 1.3 % [facility] 12/06/2024 10:2 7 AM CDT 12/06/2024 10:28 AM CDT Narrative [facility] [place] [facility] - 12/07/2024 5:24 AM CDT FASTING:YES PATIENT UNABLE TO VOID; ADVISED TO RETURN FOR COLLECTION. FASTING: YES Resulting Agency Comment Performing Organization Information: Site ID: AZEEM Name: [facility] Address: [address] [place] [phone] Director: Paz Prakash MD Juanito Chavarria MD LABORATORY Final Result Performing Organization Address [facility] [address]/[facility] Co de Phone Number [facility] [place] [facility] [address] [address], * VITAMIN D, 25 OH (12/06/2024 10:27 AM CDT) Pathologist [facility] VITAMIN D 25 HYDROXY TOTAL S/P/B 36 30 - 100 ng/mL [facility] Comment: Vitamin D Status 25-OH Vitamin D: Deficiency: <20 ng/mL Insufficiency: 20 - 29 ng/mL Optimal: > or = 30 ng/mL For 25-OH Vitamin D testing on patients on D2-supplementation and patients for whom quantitation of D2 and D3 fractions is required, the QuestAssureD(TM) 25-OH VIT D, (D2,D3), LC/MS/MS is recommended: order code 61872 (patients >2yrs). See Note 1 Note 1 For additional information, please refer to http://education.[employer]/faq/IZV231 (This link is being provided for informational/ educational purposes only.) 12/06/2024 10:2 7 AM CDT 12/06/2024 10:28 AM CDT Narrative [facility] [place] [facility] - 12/07/2024 5:24 AM CDT FASTING:YES PATIENT UNABLE TO VOID; ADVISED TO RETURN FOR COLLECTION. FASTING: YES Resulting Agency Comment Performing Organization Information: Site ID: [place]ZE[place] Name: [facility] Address: [address] [place] [phone] Director: Paz Prakash MD Juanito Chavarria MD LABORATORY Final Result [facility] [place] [facility] [place] [address] [place] [address], [place] * COLOGUARD (EXACT SCIENCE) (07/01/2023 6:40 AM VOLUNTEER SPECIALIST) COLOGUARD RESULT Negative Negative [facility] (CLIA #:[id number]) Comment: NEGATIVE TEST RESULT. A negative Cologuard [...] Ricks et al, N Engl J Med 2014;370(14):4464-5624) The normal value (reference range) for this assay is negative. COLOGUARD RE-SCREENING RECOMMENDATION: Periodic colorectal cancer screening is an important part of preventive healthcare for asymptomatic individuals at average risk for colorectal cancer. Following a negative Cologuard result, the [place] Cancer Society and U.S. Multi-Society Task Force screening guidelines recommend a Cologuard re-screening interval of 3 years. References: [place] [employer] Guideline for Colorectal Cancer Screening: https://www.cancer.org/cancer/wivmn-gzzitr-qimvuk/ygmcqwtqw-mkktvknzc-vgpzmzo/ac s-rec ommendations.html.; Chandler TALAVERA, Chris TERRAZAS, Martha BairdK, Colorectal Cancer Screening: Recommendations for Physicians and Patients from the U.S. Multi-Society Task Force on Colorectal Cancer Screening , Am J Gastroenterology 2017; 112:5614-2279. TEST DESCRIPTION: Composite algorithmic analysis of stool [...] ([place] River al, N Engl J Med 2014;370(14):8651-4632.) Cologuard may produce a false negative or false positive result (no colorectal cancer or precancerous polyp present at colonoscopy follow up). A negative Cologuard test result does not guarantee the absence of CRC or advanced adenoma (pre-cancer). The current Cologuard screening interval is every 3 years. ([place] Cancer Society and U.S. Multi-Society Task Force). Cologuard performance data in a 10,000 patient pivotal study using colonoscopy as the reference method can be accessed at the following location: www.[employer]/results. Additional description of the Cologuard test process, warnings and precautions can be found at www.cologDoodle Mobilerd.com. STOOL STOOL SPECIMEN / Unknown 07/01/2023 6:40 AM VOLUNTEER SPECIALIST 07/02/2023 6:12 PM VOLUNTEER SPECIALIST us Juanito Chavarria MD BODY FLUIDS AND STOOLS ORDERA BLES Final Result [facility] [facility] LAB) [address] [place] [place] [address], [employer] (CLIA #:[id number]) [address] [place] [place] [address] * MG SCREENING W RADHA SURJIT DIGI [...] VE NON-REACT ARIE 12/01/2022 9:39 PM CDT [facility] Comment: ANTIBODIES TO HCV NOT DETECTED. DOES NOT EXCLUDE THE POSSIBILITY OF EXPOSURE TO HCV. 12/01/2022 10:2 0 AM CDT Juanito Chavarria MD LABORATORY Final Result [facility] [address] [place] [address], [id number] from Last 3 Months or Most Recently Relevant to Health Maintenance Insurance [facility] Care Teams Filling Carrier Relationship Specialty Start Date End Date Juanito Chavarria MD [address] [facility] [address] [place] [address] PCP - General FAMILY PRACTICE 07/07/17
[2024-12-14 11:03] LABS: CRP < 0.5 mg/dL (<1.0)
[2024-12-14] MEDS: ACETAMINOPHEN 500 MG TABLET 1000 MG PO (11:12)
[2024-12-14] MEDS: KETOROLAC 15 MG/ML VIAL (*BKC) IV PUSH ×2 (11:13→14:22)
[2024-12-14] MEDS: fentaNYL CITRATE INJ (*CRX) 100 MCG/2 ML VIAL 50 MCG IV PUSH (11:21)
[2024-12-14 11:32] LABS: Alanine Aminotransferase 22 U/L (6-35); Albumin Level 4.1 g/dL (3.5-5.1); Alkaline Phosphatase 80 U/L (38-126); Anion Gap 10 mmol/L (4-12); Aspartate Amino Transferase 26 U/L (14-36); Bilirubin,Total 0.5 mg/dL (0.2-1.3); Blood Urea Nitrogen 17 mg/dL (7-17); Calcium 8.9 mg/dL (8.4-10.2); Carbon Dioxide 25 mmol/L (22-30); Chloride 106 mmol/L (98-107); Estimated CRCL calculation 72 ml/min; Estimated Glomerular Filt Rate > 60; Glucose 89 mg/dL (65-110); Potassium 4.3 mmol/L (3.4-5.0); Sodium 141 mmol/L (137-145)
--- NOTE | 2024-12-14 11:46 | WPDHPUPDATE1 ---
History and Physical Update Update Date/Time: 12/14/24 11:46 History and Physical has been reviewed, including an updated exam of the patient. There are NO changes in the patient's condition. Risks, benefits, and alternatives have been discussed and questions answered. Patient agrees to proceed with procedure. Procedure is Right Distal Radius Open Reduction with Internal Fixation. Risks include but are not limited to infection, nerve or blood vessel injury, hardware irritation requiring removal, she agrees to proceed
--- NOTE | 2024-12-14 11:47 | P.PNAN_ITS ---
Anes - Initial Pre Proc Eval Procedure: Operation Date: 12/14/24 12:00 Proposed Procedures p Open Reduction Internal Fixation of Right Distal Radius - Kamron Blake MD Date/Time: 12/14/24 11:47 Surgeon: Kamron Blake MD Pre Op Diagnosis: right wrist fracture Patient Data Age: 54 Gender: F Height: 1.57 m Weight: 80.8 kg Last Vital Signs Temp 36.5 C 12/14/24 11:15 Pulse 66 12/14/24 11:15 Resp 16 12/14/24 11:15 BP 129/76 12/14/24 11:15 Pulse Ox 100 12/14/24 11:15 O2 Del Method Room Air 12/14/24 11:15 Allergies Allergy/AdvReac Type Severity Reaction Status Date / Time No Known Allergies Allergy Verified 12/14/24 11:13 Home Medications ?Medication ?Instructions ?Recorded ?Confirmed ?Type atorvastatin 80 mg tablet 80 mg PO DAILY 04/26/21 12/12/24 History escitalopram oxalate 20 mg tablet 20 mg PO DAILY 04/26/21 12/12/24 History omeprazole 40 mg capsule,delayed 40 mg PO DAILY 04/26/21 12/12/24 History release hydrocodone 5 mg-acetaminophen 325 1 tablet PO Q6H PRN pain #20 tabs 12/09/24 12/12/24 Rx mg tablet buspirone 30 mg tablet 30 mg PO DAILY 12/12/24 12/12/24 History metformin 500 mg tablet,extended 500 mg PO DAILY 12/12/24 12/12/24 History release 24 hr Laboratory Tests 12/14/24 10:20 Sodium 141 mmol/L (137-145) Potassium 4.3 mmol/L (3.4-5.0) Chloride 106 mmol/L (98-107) Carbon Dioxide 25 mmol/L (22-30) Anion Gap 10 mmol/L (4-12) BUN 17 mg/dL (7-17) Creatinine 0.74 mg/dL (0.7-1.0) Estim Creat Clear Calc 72 ml/min Estimated GFR > 60 (59 - ) Glucose 89 mg/dL (65-110) Calcium 8.9 mg/dL (8.4-10.2) Total Bilirubin 0.5 mg/dL (0.2-1.3) AST 26 U/L (14-36) ALT 22 U/L (6-35) Alkaline Phosphatase 80 U/L (38-126) C-Reactive Protein < 0.5 mg/dL (<1.0) Total Protein 7.0 g/dL (6.3-8.2) Albumin 4.1 g/dL (3.5-5.1) Patient hx anesthesia problems: none Family hx anesthesia problems: none Results Review: All pre-operative results and documents have been reviewed as part of the pre- operative evaluation. PMFSH Past Medical History Medical History Depression GERD (gastroesophageal reflux disease) High cholesterol Social History Social History Smoking packs per day: 0.8 Smoking cigarettes per day: 16.0 Smoking status: Current every day smoker Tobacco type: e-cigarettes/vaping Alcohol intake: current Alcohol use details: Usually drinks 1 or 2 times a week but has been drinking a little more the last few weeks Anes - Eval Final PreProcedure Day of Procedure 12/14/24 11:47 Patient weight: obese Heart: regular rate and rhythm Lungs: decreased breath sounds Airway: Mallampati scale class III Neurological: alert and oriented Last oral intake: >/= 8 hours ASA classification: III Emergent: no Anesthetic plan: proceed Anesthesia type and monitoring: general LMA and standard monitoring Results Review: All pre-operative results and documents have been reviewed as part of the pre- operative evaluation. Informed Consent: The patient's anesthetic plan and its attendant risks and benefits were discussed with the patient/family/POA. Questions were solicited and answers provided to the satisfaction of the patient/family/POA.
--- NOTE | 2024-12-14 11:48 | PM.PNORT ---
Progress Note: A&P Assessment and Plan (1) Fracture of right distal radius: Code(s): S52.501A - Unspecified fracture of the lower end of right radius, initial encounter for closed fracture Status: Acute Plan Right Distal Radius Open Reduction with Internal Fixation Subjective Subjective Date/Time Seen: 12/14/24 11:48 Principal diagnosis: Right Distal Radius Fracture Exam Narrative: Right Wrist in splint with good cap refill and good sensation to all digits Objective Data Vital Signs Vital Signs: Vital Signs - 24 hr 12/14/24 11:15 Temperature 36.5 C Pulse Rate 66 Respiratory Rate 16 Blood Pressure 129/76 Pulse Oximetry 100 Oxygen Delivery Room Air Labs Labs: Laboratory Results - last 24 hr 12/14/24 10:20 Sodium 141 Potassium 4.3 Chloride 106 Carbon Dioxide 25 Anion Gap 10 BUN 17 Creatinine 0.74 Estim Creat Clear Calc 72 Estimated GFR > 60 Glucose 89 Calcium 8.9 Total Bilirubin 0.5 AST 26 ALT 22 Alkaline Phosphatase 80 C-Reactive Protein < 0.5 Total Protein 7.0 Albumin 4.1
[2024-12-14] MEDS: ceFAZolin 2 GM/D5W 50 ML 2 GM/50 ML BAG IVPB (12:18)
[2024-12-14] MEDS: ceFAZolin SODIUM 1 GM VIAL (12:48)
[2024-12-14] MEDS: LIDO 1%/EPINEPHRINE 1:100,000 20 ML VIAL INFILTRATE (12:49)
[2024-12-14] MEDS: LACTATED RINGERS 1,000 ML 30 ML IV CONT ×2 (13:23)
--- NOTE | 2024-12-14 13:27 | W.PM.PROC2 ---
Procedure Note - Detailed Date of Procedure 12/14/24 Pre-op Diagnosis Right distal radius fracture comminuted intra-articular greater than three-part Post-op Diagnosis Same Procedure Performed Open reduction internal fixation of right distal radius intra-articular greater than three-part Surgeon Kamron Blake MD Anesthesia General Indications Unstable comminuted right distal radius fracture intra-articular greater than three-part Description of Procedure After obtaining consent with regard to the risks benefits alternatives and complications of the procedure and correctly marked the site of surgery the patient was then brought brought back to the operative room placed in supine position and underwent general anesthesia. The right upper extremity was then prepped and draped in a standard sterile fashion. Time-out was performed in order to verify correct patient correct site of surgery correct procedure and over 5 minute duration of intravenous antibiotics within 1 hour of the incision which was 2 g of Ancef. Esmarch exsanguination was used tourniquet was elevated to 250 mmHg. A volar incision was made dissection carried down and the interval between the FCR and radial artery was easily identified in the radial artery was also identified and protected during the entire procedure. I then exposed the fracture site obtain anatomic reduction and verified this with fluoroscopy. I then placed a volar plate in position and verified the positioning both in AP and lateral views and then a procedure for her 1st to place a screw into the oblong hole. I then positioned the plate mediolateral to ensure that the radial styloid screw was targeted to the center of the radial styloid. We then proceeded to tighten up the within the oval hole and then proceeded to place multiple pegs distally. Fluoroscopy was used to verify that all pegs were extra-articular. And out of the pegs violated the dorsal cortex. I then irrigated copiously injected with lidocaine with epinephrine and closed the skin using 3-0 Monocryl suture in the dermal layer and Steri-Strips are placed. Patient is then placed in a volar splint and transferred to the recovery room stable condition. I will see the patient back in my office as scheduled. The patient was instructed to elevate and ice the right wrist for 48 hours. The patient has a appointment to see me in my clinic approximately 7-10 days from today. Implants Accu Med volar plate Estimated Blood Loss 10 Tourniquet Time Total Tourniquet Time: 44 Drains No Packing No Pathology None sent Complications None Condition Stable Disposition PACU
[2024-12-14] MEDS: ONDANSETRON INJ 4 MG/2 ML VIAL IV PUSH (13:41)
[2024-12-14] MEDS: fentaNYL CITRATE INJ (*CRX) 100 MCG/2 ML VIAL 25 MCG IV PUSH ×4 (13:43→13:53)
[2024-12-14] MEDS: HYDROmorphone HCL INJ (*CRX) 1 MG/ML SYR IV PUSH ×2 (13:59→14:12)
[2024-12-14] MEDS: oxyCODONE HCL (*CRX) 5 MG TAB IR PO (15:00)
== END 2024-12-14 15:35 | disposition home or self-care (01) ==
PROVIDERS: PCP Family Medicine; Visit Provider Orthopaedic Surgery
PROC: (CPT 25575; principal; 2024-12-14 12:00)
DX: S52.571A Other intraarticular fracture of lower end of right radius, initial encounter for closed fracture (principal); X58.XXXA Exposure to other specified factors, initial encounter; E66.9 Obesity, unspecified; Z68.32 Body mass index [BMI] 32.0-32.9, adult; Z79.891 Long term (current) use of opiate analgesic; Z79.84 Long term (current) use of oral hypoglycemic drugs; F17.290 Nicotine dependence, other tobacco product, uncomplicated
CPT/HCPCS: 25609; 36415; 80053; 86140; 99199; A9270; C1713; J0690; J1100; J1171; J1885; J2004; J2405; J2704; J3010; J7120